=== PATIENT | female | born 1970 | race Caucasian/White ===

== ENCOUNTER 2018-11-13 15:13 | Inpatient (IN) | payer SELFPAY ==
[2018-11-13] MEDS ORDERED: cefTRIAXone 2 GM in Sodium Chloride 0.9% 100 ML IV ONE ×2 (15:35→15:51)
[2018-11-13] MEDS ORDERED: Sodium Chloride 0.9% 1,000 ML IV ONE (15:37)
[2018-11-13] MEDS: Sodium Chloride 0.9% 10 ML Syringe FLUSH PRN ×2 (16:11→17:20)
[2018-11-13] MEDS ORDERED: HYDROmorphone 1 MG/ML Syringe IVPUSH ONE (17:25)
[2018-11-13] MEDS ORDERED: Ondansetron 4 MG/2 ML SDV IVPUSH ONE (17:42)
--- NOTE | 2018-11-13 17:46 | EDM.PDOC ---
ED HPI GENERAL MEDICAL PROBLEM - General Chief Complaint: Genitourinary Problem Stated Complaint: SEVERE KIDNEY INFECTION AND BLADDER INFECTION Time Seen by Provider: 11/13/18 15:26 Source of Information: Reports: Patient, Family History Limitations: Reports: No Limitations - History of Present Illness INITIAL COMMENTS - FREE TEXT/NARRATIVE: The patient presents with a bad kidney infection. The patient says the symptoms started 5 days ago. She had flank pain, nausea, vomiting and dysuria. She was in [place] and she was seen at an ER there. She had a bad kidney infection and she was admitted to the hospital. She was discharged the next day because she had to fly back here. She developed a fever in [place] of 103. She has lower abdominal pain and bilateral flank pain. She has nausea and vomiting. She was called by the hospital and told she may have an E-coli infection. She was not sure if that was in the blood culture. She is not sure if they did a CT. She thinks she had an x-ray. Her thinks it was a CT. I requested old records but they did not sent any. She has a history of diverticulitis. Onset: Gradual Duration: Day(s): (5) Location: Reports: Abdomen, Back Quality: Reports: Sharp Severity: Severe Improves with: Reports: None Worsens with: Reports: None Associated Symptoms: Reports: Fever/Chills, Nausea/Vomiting. Denies: Chest Pain , Cough, Headaches, Shortness of Breath 0 Pain Score (Numeric/FACES): 8 - Related Data Allergies Allergy/AdvReac Type Severity Reaction Status Date / Time Gadolinium-Containing Allergy Rash Verified 11/13/18 15:48 Contrast Medi Home Meds: Home Meds Acetaminophen/oxyCODONE [Percocet 325-7.5 MG] 11/13/18 [History] Promethazine HCl [Promethegan] 11/13/18 [History] Sulfamethoxazole/Trimethoprim [Bactrim Ds Tablet] 11/13/18 [History] amLODIPine Besylate [Amlodipine Besylate] 5 mg 11/13/18 [History] Past Medical History Cardiovascular History: Reports: Hypertension Gastrointestinal History: Reports: Diverticulosis Genitourinary History: Reports: Pyelonephritis, Retention, Urinary, UTI, Recurrent 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, Fibroids, Psychiatric History: Reports: Hallucinations, Panic Attack - Past Surgical History GI Surgical History: Reports: None Female Surgical History: Reports: Hysterectomy Social & Family History - Tobacco Use Smoking Status *Q: Current Some Day Smoker Years of Tobacco use: 20 Packs/Tins Daily: 0.2 - Caffeine Use Caffeine Use: Reports: Soda - Recreational Drug Use Recreational Drug Use: No ED ROS GENERAL - Review of Systems Review Of Systems: See Below Constitutional: Reports: Fever, Chills HEENT: Reports: No Symptoms Respiratory: Reports: No Symptoms Cardiovascular: Reports: No Symptoms Endocrine: Reports: No Symptoms GI/Abdominal: Reports: Abdominal Pain, Nausea, Vomiting : Reports: Flank Pain Musculoskeletal: Reports: No Symptoms Skin: Reports: No Symptoms Neurological: Reports: No Symptoms ED EXAM, GI/ABD - Physical Exam Exam: See Below Exam Limited By: No Limitations General Appearance: Alert, No Apparent Distress Ears: Normal External Exam Nose: Normal Inspection Head: Atraumatic, Normocephalic Neck: Normal Inspection Respiratory/Chest: No Respiratory Distress, Lungs Clear, Normal Breath Sounds Cardiovascular: Regular Rate, Rhythm, No Edema, No Murmur GI/Abdominal Exam: Soft, No Organomegaly, No Mass, Tender (Mild to moderate lower abdominal tenderness) Back Exam: CVA Tenderness (L), CVA Tenderness (R) Course - Vital Signs Last Recorded V/S: Last Vital Signs Temp 99.2 F 11/13/18 15:23 Pulse 123 H 11/13/18 15:23 Resp 20 11/13/18 15:23 BP 211/122 H 11/13/18 15:23 Pulse Ox 96 11/13/18 15:23 - Orders/Labs/Meds Orders: Active Orders 24 hr Category Date Time Status Abdomen Pelvis wo Cont [CT] Stat Exams 11/13/18 17:45 Taken CULTURE BLOOD [BC] Stat Lab 11/13/18 15:59 Received CULTURE BLOOD [BC] Stat Lab 11/13/18 16:03 Received Sodium Chloride 0.9% [Saline Flush] Med 11/13/18 15:35 Active 10 ml FLUSH ASDIRECTED PRN Blood Culture x2 Reflex Set [OM.PC] Stat Oth 11/13/18 15:35 Ordered Saline Lock Insert [OM.PC] Stat Oth 11/13/18 15:35 Ordered Medication Orders Sodium Chloride (Saline Flush) 10 ml FLUSH ASDIRECTED PRN PRN Reason: Keep Vein Open Last Admin: 11/13/18 17:20 Dose: 10 ml Admin: 11/13/18 16:11 Dose: 10 ml Labs: Laboratory Tests 11/13/18 11/13/18 11/13/18 Range/Units 13:35 15:35 15:35 WBC 7.62 (3.98-10.04) K/mm3 RBC 3.69 L (3.98-5.22) M/mm3 Hgb 11.8 (11.2-15.7) gm/L Hct 35.4 (34.1-44.9) % MCV 95.9 H (79.4-94.8) fl MCH 32.0 (25.6-32.2) pg MCHC 33.3 (32.2-35.5) g/dl RDW Std Deviation 47.7 H (36.4-46.3) fL Plt Count 227 (182-369) K/mm3 MPV 9.6 (9.4-12.3) fl Neut % (Auto) 66.0 (34.0-71.1) % Lymph % (Auto) 16.0 L (19.3-51.7) % [place] % (Auto) 17.1 H (4.7-12.5) % Eos % (Auto) 0.3 L (0.7-5.8) Baso % (Auto) 0.3 (0.1-1.2) % Neut # (Auto) 5.04 (1.56-6.13) K/mm3 Lymph # (Auto) 1.22 (1.18-3.74) K/mm3 [place] # (Auto) 1.30 H (0.24-0.36) K/mm3 Eos # (Auto) 0.02 L (0.04-0.36) K/mm3 Baso # (Auto) 0.02 (0.01-0.08) K/mm3 Manual Slide Review Abnormal smear Sodium 136 (136-145) mEq/L Potassium 2.5 L (3.5-5.1) mEq/L Chloride 101 (98-107) mEq/L Carbon Dioxide 23 (21-32) mEq/L Anion Gap 14.5 (5-15) BUN 16 (7-18) mg/dL Creatinine 1.7 H (0.55-1.02) mg/dL Est Cr Clr Drug Dosing TNP Estimated GFR (MDRD) 32 (>60) mL/min BUN/Creatinine Ratio 9.4 L (14-18) Glucose 84 (74-106) mg/dL Lactic Acid (0.4-2.0) mmol/L Calcium 9.2 (8.5-10.1) mg/dL Total Bilirubin 0.5 (0.2-1.0) mg/dL AST 21 (15-37) U/L ALT 41 (14-59) U/L Alkaline Phosphatase 145 H (46-116) U/L Total Protein 7.3 (6.4-8.2) g/dl Albumin 2.9 L (3.4-5.0) g/dl Globulin 4.4 gm/dL Albumin/Globulin Ratio 0.7 L (1-2) Urine Color Light yellow (Yellow) Urine Appearance Clear (Clear) Urine pH 6.5 (5.0-8.0) Ur Specific [place] 1.015 (1.005-1.030) Urine Protein 1+ H (Negative) Urine Glucose (UA) Negative (Negative) Urine Ketones Negative (Negative) Urine Occult Blood 1+ H (Negative) Urine Nitrite Negative (Negative) Urine Bilirubin Negative (Negative) Urine Urobilinogen 0.2 (0.2-1.0) Ur Leukocyte Esterase 1+ H (Negative) Urine RBC 0-5 (0-5) /hpf Urine WBC 0-5 (0-5) /hpf Ur Squamous Epith Cells 0-5 (0-5) /hpf Urine Bacteria Not seen (FEW) /hpf Urine Mucus Not seen (FEW) /hpf 11/13/18 Range/Units 15:59 WBC (3.98-10.04) K/mm3 RBC (3.98-5.22) M/mm3 Hgb (11.2-15.7) gm/L Hct (34.1-44.9) % MCV (79.4-94.8) fl MCH (25.6-32.2) pg MCHC (32.2-35.5) g/dl RDW Std Deviation (36.4-46.3) fL Plt Count (182-369) K/mm3 MPV (9.4-12.3) fl Neut % (Auto) (34.0-71.1) % Lymph % (Auto) (19.3-51.7) % [place] % (Auto) (4.7-12.5) % Eos % (Auto) (0.7-5.8) Baso % (Auto) (0.1-1.2) % Neut # (Auto) (1.56-6.13) K/mm3 Lymph # (Auto) (1.18-3.74) K/mm3 [place] # (Auto) (0.24-0.36) K/mm3 Eos # (Auto) (0.04-0.36) K/mm3 Baso # (Auto) (0.01-0.08) K/mm3 Manual Slide Review Sodium (136-145) mEq/L Potassium (3.5-5.1) mEq/L Chloride (98-107) mEq/L Carbon Dioxide (21-32) mEq/L Anion Gap (5-15) BUN (7-18) mg/dL Creatinine (0.55-1.02) mg/dL Est Cr Clr Drug Dosing Estimated GFR (MDRD) (>60) mL/min BUN/Creatinine Ratio (14-18) Glucose (74-106) mg/dL Lactic Acid 1.0 (0.4-2.0) mmol/L Calcium (8.5-10.1) mg/dL Total Bilirubin (0.2-1.0) mg/dL AST (15-37) U/L ALT (14-59) U/L Alkaline Phosphatase (46-116) U/L Total Protein (6.4-8.2) g/dl Albumin (3.4-5.0) g/dl Globulin gm/dL Albumin/Globulin Ratio (1-2) Urine Color (Yellow) Urine Appearance (Clear) Urine pH (5.0-8.0) Ur Specific [place] (1.005-1.030) Urine Protein (Negative) Urine Glucose (UA) (Negative) Urine Ketones (Negative) Urine Occult Blood (Negative) Urine Nitrite (Negative) Urine Bilirubin (Negative) Urine Urobilinogen (0.2-1.0) Ur Leukocyte Esterase (Negative) Urine RBC (0-5) /hpf Urine WBC (0-5) /hpf Ur Squamous Epith Cells (0-5) /hpf Urine Bacteria (FEW) /hpf Urine Mucus (FEW) /hpf Meds: Medications Generic Name Dose Route Start Last Admin Trade Name Ishmael PRN Reason Stop Dose Admin Sodium Chloride 10 ml 11/13/18 15:35 11/13/18 17:20 Saline Flush FLUSH 10 ml ASDIRECTED PRN Administration Keep Vein Open Discontinued Medications Generic Name Dose Route Start Last Admin Trade Name Ishmael PRN Reason Stop Dose Admin Hydromorphone HCl 1 mg 11/13/18 17:25 11/13/18 17:40 Dilaudid IVPUSH 11/13/18 17:26 1 mg ONETIME ONE Administration Ceftriaxone Sodium 2 gm/ 100 mls @ 200 mls/hr 11/13/18 15:35 11/13/18 16:58 Sodium Chloride IV 11/13/18 16:04 Not Given STAT ONE Sodium Chloride 1,000 mls @ 1,000 mls/hr 11/13/18 15:37 11/13/18 16:08 Normal Saline IV 11/13/18 16:36 1,000 mls/hr ONETIME ONE Administration Ceftriaxone Sodium 2 gm/ 100 mls @ 200 mls/hr 11/13/18 15:51 11/13/18 16:10 Sodium Chloride IV 11/13/18 16:20 200 mls/hr ONETIME ONE Administration Ondansetron HCl 4 mg 11/13/18 17:42 11/13/18 17:47 Zofran IVPUSH 11/13/18 17:43 4 mg ONETIME ONE Administration - Re-Assessments/Exams Free Text/Narrative Re-Assessment/Exam: 11/13/18 17:52 I ordered an IV NS 1L bolus, dilaudid 1mg IV, labs and UA. Her CBC looks good. Her K is low at 2.5. Her creatinine is elevated at 1.7. Her alk phos is elevated at 145. Her UA shows leukocyte esterase. She has more pain so I ordered dilaudid again. She had nausea and vomiting so I ordered zofran. The other hospital did not send any records. I am ordering a CT of her abdomen and pelvis without IV or oral contrast. 11/13/18 19:[address] does show right perinephric stranding which could reflect pyelonephritis or a recently passed stone. She is still not doing well. I do not feel she will do well at home up in [place]. I feel she needs to be admitted. I called Dr Lu and he agreed to the admission. Departure - Departure Time of Disposition: 19:10 Disposition: Admitted As Inpatient 65 Condition: Good Clinical Impression: Pyelonephritis - Discharge Information Referrals: PCP,Not In Area [Primary Care Provider] - Forms: ED Department Discharge - My Orders Last 24 Hours: My Active Orders 11/13/18 15:35 Sodium Chloride 0.9% [Saline Flush] 10 ml FLUSH ASDIRECTED PRN Blood Culture x2 Reflex Set [OM.PC] Stat Saline Lock Insert [OM.PC] Stat 11/13/18 15:59 CULTURE BLOOD [BC] Stat 11/13/18 16:03 CULTURE BLOOD [BC] Stat 11/13/18 17:45 Abdomen Pelvis wo Cont [CT] Stat - Assessment/Plan Last 24 Hours: My Active Orders 11/13/18 15:35 Sodium Chloride 0.9% [Saline Flush] 10 ml FLUSH ASDIRECTED PRN Blood Culture x2 Reflex Set [OM.PC] Stat Saline Lock Insert [OM.PC] Stat 11/13/18 15:59 CULTURE BLOOD [BC] Stat 11/13/18 16:03 CULTURE BLOOD [BC] Stat 11/13/18 17:45 Abdomen Pelvis wo Cont [CT] Stat
[2018-11-13] MEDS ORDERED: Potassium Chloride 10 MEQ in Premix Bag 1 BAG IV SCH (19:30)
[2018-11-13] MEDS ORDERED: Sodium Chloride 0.9% 1,000 ML IV SCH (20:00)
[2018-11-13] MEDS ORDERED: Polyethylene Glycol 3350 Powder 17 GM Packet PO PRN (20:56)
[2018-11-13] MEDS ORDERED: Bisacodyl 5 MG Tab PO PRN (20:56)
--- NOTE | 2018-11-13 21:01 | PCM.HP.2 ---
H&P History of Present Illness - General Date of Service: 11/13/18 Admit Problem/Dx: Admission Diagnosis/Problem Admission Diagnosis/Problem Pyelonephritis - History of Present Illness Initial Comments - Free Text/Narative: 39-year-old female who was discharged yesterday from the hospital in [place] for pyelonephritis presents to the ER with worsening fever, abdominal and right flank pain, nausea, and vomiting. Patient was seen at the emergency room 5 days ago after developing shaking chills and feeling "not all there." Patient was on IV antibiotics and she stated she wanted to go home yesterday although the physician wanted to keep her another day. He did send her home on Bactrim, but she had a phone call today that stated she needs a different antibiotic for Escherichia coli. She does not know the name of the antibiotic. Today in the [place] import she had a temperature of 103.7. She is on amlodipine for her hypertension, but has not been able to keep her medications down. She does have a history of diverticulosis and had a hysterectomy. In the emergency room patient had temperature 99.2 with initial blood pressure of 211/122. This decreased with pain control. CT of the abdomen was performed which showed right perinephric stranding which could reflect pyelonephritis or recently passed stone. Laboratory tests: [place] BC 7.6, hemoglobin of 11.8, platelets 227, sodium 136, potassium 2.5, BUN 16, creatinine 1.7, lactic acid 1.0, alkaline phosphatase 145 , normal AST and ALT, albumin low at 2.9. UA was only significant for 1+ leukocyte Estrace, 1+ occult blood, and 1+ protein. 0-5 RBCs and WBCs. No bacteria seen. 0 Pain Score (Numeric/FACES): 8 - Related Data Allergies/Adverse Reactions: Allergies Allergy/AdvReac Type Severity Reaction Status Date / Time Gadolinium-Containing Allergy Rash Verified 11/13/18 15:48 Contrast Medi Home Medications: Home Meds Promethazine [Phenergan] 12.5 mg PO Q6HR PRN 11/13/18 [History] Sulfamethoxazole/Trimethoprim [Bactrim Ds Tablet] 1 tab PO BID 11/13/18 [History ] amLODIPine Besylate [Amlodipine Besylate] 10 mg PO BEDTIME 11/13/18 [History] oxyCODONE HCl/Acetaminophen [Oxycodon-Acetaminophen 7.5-300] 1 tab PO Q6HR PRN 11/13/18 [History] Past Medical History Cardiovascular History: Reports: Hypertension Gastrointestinal History: Reports: Diverticulosis Genitourinary History: Reports: Pyelonephritis, Retention, Urinary, UTI, Recurrent 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 Exam - Exam Exam: See Below - Vital Signs Vital Signs: Last Vital Signs Temp 99.2 F 11/13/18 15:23 Pulse 123 H 11/13/18 15:23 Resp 20 11/13/18 15:23 BP 211/122 H 11/13/18 15:23 Pulse Ox 96 11/13/18 15:23 - Exam Quality Assessment: No: Supplemental Oxygen General: Alert, Oriented, Other (moderate discomfort) HEENT: Conjunctiva Clear, Hearing Intact, Mucosa Moist & [place] Neck: Supple, Trachea Midline, 2 Lungs: Clear to Auscultation, Normal Respiratory Effort Cardiovascular: Regular Rate, Regular Rhythm GI/Abdominal Exam: Normal Bowel Sounds, Soft, No Organomegaly, No Distention, No Abnormal Bruit, No Mass, Tender (moderate right upper quadrant tenderness with right flank tenderness). No: Guarding, Rigid, Rebound Extremities: Normal Inspection, Normal Range of Motion, Non-Tender, No Pedal Edema, Normal Capillary Refill Skin: Warm, Dry, Intact Neurological: Cranial Nerves Intact Neuro Extensive - Mental Status: Alert, Oriented x3, Normal Mood/Affect, Normal Cognition, Memory Intact Neuro Extensive - Motor, Sensory, Reflexes: CN II-XII Intact Psychiatric: Alert, Normal Affect, Normal Mood - Patient Data Lab Results Last 24 hrs: Laboratory Results - last 24 hr 11/13/18 11/13/18 11/13/18 Range/Units 13:35 15:35 15:35 WBC 7.62 (3.98-10.04) K/mm3 RBC 3.69 L (3.98-5.22) M/mm3 Hgb 11.8 (11.2-15.7) gm/L Hct 35.4 (34.1-44.9) % MCV 95.9 H (79.4-94.8) fl MCH 32.0 (25.6-32.2) pg MCHC 33.3 (32.2-35.5) g/dl RDW Std Deviation 47.7 H (36.4-46.3) fL Plt Count 227 (182-369) K/mm3 MPV 9.6 (9.4-12.3) fl Neut % (Auto) 66.0 (34.0-71.1) % Lymph % (Auto) 16.0 L (19.3-51.7) % [place] % (Auto) 17.1 H (4.7-12.5) % Eos % (Auto) 0.3 L (0.7-5.8) Baso % (Auto) 0.3 (0.1-1.2) % Neut # (Auto) 5.04 (1.56-6.13) K/mm3 Lymph # (Auto) 1.22 (1.18-3.74) K/mm3 [place] # (Auto) 1.30 H (0.24-0.36) K/mm3 Eos # (Auto) 0.02 L (0.04-0.36) K/mm3 Baso # (Auto) 0.02 (0.01-0.08) K/mm3 Manual Slide Review Abnormal smear Sodium 136 (136-145) mEq/L Potassium 2.5 L (3.5-5.1) mEq/L Chloride 101 (98-107) mEq/L Carbon Dioxide 23 (21-32) mEq/L Anion Gap 14.5 (5-15) BUN 16 (7-18) mg/dL Creatinine 1.7 H (0.55-1.02) mg/dL Est Cr Clr Drug Dosing TNP Estimated GFR (MDRD) 32 (>60) mL/min BUN/Creatinine Ratio 9.4 L (14-18) Glucose 84 (74-106) mg/dL Lactic Acid (0.4-2.0) mmol/L Calcium 9.2 (8.5-10.1) mg/dL Total Bilirubin 0.5 (0.2-1.0) mg/dL AST 21 (15-37) U/L ALT 41 (14-59) U/L Alkaline Phosphatase 145 H (46-116) U/L Total Protein 7.3 (6.4-8.2) g/dl Albumin 2.9 L (3.4-5.0) g/dl Globulin 4.4 gm/dL Albumin/Globulin Ratio 0.7 L (1-2) Urine Color Light yellow (Yellow) Urine Appearance Clear (Clear) Urine pH 6.5 (5.0-8.0) Ur Specific [place] 1.015 (1.005-1.030) Urine Protein 1+ H (Negative) Urine Glucose (UA) Negative (Negative) Urine Ketones Negative (Negative) Urine Occult Blood 1+ H (Negative) Urine Nitrite Negative (Negative) Urine Bilirubin Negative (Negative) Urine Urobilinogen 0.2 (0.2-1.0) Ur Leukocyte Esterase 1+ H (Negative) Urine RBC 0-5 (0-5) /hpf Urine WBC 0-5 (0-5) /hpf Ur Squamous Epith Cells 0-5 (0-5) /hpf Urine Bacteria Not seen (FEW) /hpf Urine Mucus Not seen (FEW) /hpf 11/13/18 Range/Units 15:59 WBC (3.98-10.04) K/mm3 RBC (3.98-5.22) M/mm3 Hgb (11.2-15.7) gm/L Hct (34.1-44.9) % MCV (79.4-94.8) fl MCH (25.6-32.2) pg MCHC (32.2-35.5) g/dl RDW Std Deviation (36.4-46.3) fL Plt Count (182-369) K/mm3 MPV (9.4-12.3) fl Neut % (Auto) (34.0-71.1) % Lymph % (Auto) (19.3-51.7) % [place] % (Auto) (4.7-12.5) % Eos % (Auto) (0.7-5.8) Baso % (Auto) (0.1-1.2) % Neut # (Auto) (1.56-6.13) K/mm3 Lymph # (Auto) (1.18-3.74) K/mm3 [place] # (Auto) (0.24-0.36) K/mm3 Eos # (Auto) (0.04-0.36) K/mm3 Baso # (Auto) (0.01-0.08) K/mm3 Manual Slide Review Sodium (136-145) mEq/L Potassium (3.5-5.1) mEq/L Chloride (98-107) mEq/L Carbon Dioxide (21-32) mEq/L Anion Gap (5-15) BUN (7-18) mg/dL Creatinine (0.55-1.02) mg/dL Est Cr Clr Drug Dosing Estimated GFR (MDRD) (>60) mL/min BUN/Creatinine Ratio (14-18) Glucose (74-106) mg/dL Lactic Acid 1.0 (0.4-2.0) mmol/L Calcium (8.5-10.1) mg/dL Total Bilirubin (0.2-1.0) mg/dL AST (15-37) U/L ALT (14-59) U/L Alkaline Phosphatase (46-116) U/L Total Protein (6.4-8.2) g/dl Albumin (3.4-5.0) g/dl Globulin gm/dL Albumin/Globulin Ratio (1-2) Urine Color (Yellow) Urine Appearance (Clear) Urine pH (5.0-8.0) Ur Specific [place] (1.005-1.030) Urine Protein (Negative) Urine Glucose (UA) (Negative) Urine Ketones (Negative) Urine Occult Blood (Negative) Urine Nitrite (Negative) Urine Bilirubin (Negative) Urine Urobilinogen (0.2-1.0) Ur Leukocyte Esterase (Negative) Urine RBC (0-5) /hpf Urine WBC (0-5) /hpf Ur Squamous Epith Cells (0-5) /hpf Urine Bacteria (FEW) /hpf Urine Mucus (FEW) /hpf Result Diagrams: 11/13/18 15:35 11/13/18 15:35 Problem List Initiated/Reviewed/Updated: Yes Orders Last 24hrs: Active Orders 24 hr Category Date Time Status Admission Status [Patient Status] [ADT] Routine ADT 11/13/18 20:35 Active Oxygen Therapy [RC] PRN Care 11/13/18 20:57 Ordered Up ad Julienne [RC] ASDIRECTED Care 11/13/18 20:56 Ordered VTE/DVT Education [RC] PER UNIT ROUTINE Care 11/13/18 20:57 Ordered Vital Signs [RC] Q4H Care 11/13/18 20:57 Ordered Regular Diet [DIET] Diet 11/13/18 Dinner Ordered Abdomen Pelvis wo Cont [CT] Stat Exams 11/13/18 17:45 Taken C-REACTIVE PROTEIN [CHEM] AM Lab 11/14/18 05:11 Ordered C-REACTIVE PROTEIN [CHEM] AM Lab 11/15/18 05:11 Ordered C-REACTIVE PROTEIN [CHEM] AM Lab 11/16/18 05:11 Ordered C-REACTIVE PROTEIN [CHEM] AM Lab 11/17/18 05:11 Ordered C-REACTIVE PROTEIN [CHEM] AM Lab 11/18/18 05:11 Ordered CBC WITH AUTO DIFF [HEME] AM Lab 11/14/18 05:11 Ordered CBC WITH AUTO DIFF [HEME] AM Lab 11/15/18 05:11 Ordered CBC WITH AUTO DIFF [HEME] AM Lab 11/16/18 05:11 Ordered CBC WITH AUTO DIFF [HEME] AM Lab 11/17/18 05:11 Ordered CBC WITH AUTO DIFF [HEME] AM Lab 11/18/18 05:11 Ordered COMPREHENSIVE METABOLIC PN,CMP [CHEM] AM Lab 11/14/18 05:11 Ordered COMPREHENSIVE METABOLIC PN,CMP [CHEM] AM Lab 11/15/18 05:11 Ordered COMPREHENSIVE METABOLIC PN,CMP [CHEM] AM Lab 11/16/18 05:11 Ordered COMPREHENSIVE METABOLIC PN,CMP [CHEM] AM Lab 11/17/18 05:11 Ordered COMPREHENSIVE METABOLIC PN,CMP [CHEM] AM Lab 11/18/18 05:11 Ordered CULTURE BLOOD [BC] Stat Lab 11/13/18 15:59 Received CULTURE BLOOD [BC] Stat Lab 11/13/18 16:03 Received MAGNESIUM [CHEM] AM Lab 11/14/18 05:11 Ordered MAGNESIUM [CHEM] AM Lab 11/15/18 05:11 Ordered MAGNESIUM [CHEM] AM Lab 11/16/18 05:11 Ordered MAGNESIUM [CHEM] AM Lab 11/17/18 05:11 Ordered MAGNESIUM [CHEM] AM Lab 11/18/18 05:11 Ordered Acetaminophen [Tylenol] Med 11/13/18 20:56 Ordered 650 mg PO Q4H PRN Bisacodyl [Dulcolax] Med 11/13/18 20:56 Ordered 5 mg PO DAILY PRN Enoxaparin [Lovenox] Med 11/14/18 09:00 Ordered 40 mg SUBCUT DAILY HYDROmorphone [Dilaudid] Med 11/13/18 20:56 Ordered 0.5 mg IVPUSH Q2H PRN Meropenem [Merrem] Med 11/13/18 21:00 Ordered 1 gm IVPUSH Q8H Ondansetron [Zofran] Med 11/13/18 20:56 Ordered 4 mg IV Q4H PRN Polyethylene Glycol 3350 [MiraLAX] Med 11/13/18 20:56 Ordered 17 gm PO DAILY PRN Potassium Chloride [KCl 10 MEQ in Water 100 ML] 10 meq Med 11/13/18 19:30 Active Premix Bag 1 bag IV ASDIRECTED Sodium Chloride 0.9% [Normal Saline] 1,000 ml Med 11/13/18 20:00 Active IV ASDIRECTED Sodium Chloride 0.9% [Saline Flush] Med 11/13/18 15:35 Active 10 ml FLUSH ASDIRECTED PRN amLODIPine [Norvasc] Med 11/13/18 21:00 Unverified DOSE UNIT RTE FREQ oxyCODONE Med 11/13/18 20:56 Ordered 5 mg PO Q4H PRN Blood Culture x2 Reflex Set [OM.PC] Stat Oth 11/13/18 15:35 Ordered Saline Lock Insert [OM.PC] Stat Oth 11/13/18 15:35 Ordered Resuscitation Status Routine Resus Stat 11/13/18 20:56 Ordered Medication Orders Potassium Chloride 10 meq/ (Premix) 100 mls @ 100 mls/hr IV ASDIRECTED [facility] Last Admin: 11/13/18 19:52 Dose: 100 mls/hr Sodium Chloride (Normal Saline) 1,000 mls @ 50 mls/hr IV ASDIRECTED ELISEO Last Admin: 11/13/18 19:52 Dose: 50 mls/hr Sodium Chloride (Saline Flush) 10 ml FLUSH ASDIRECTED PRN PRN Reason: Keep Vein Open Last Admin: 11/13/18 17:20 Dose: 10 ml Admin: 11/13/18 16:11 Dose: 10 ml Assessment/Plan Comment:: Assessment * 47-year-old female recently admitted for pyelonephritis with recurrence. Escherichia coli on culture from previous hospitalization per patient not sensitive to Bactrim. * Acute kidney injury * Hypokalemia * Hypertension Plan * Admit to MedSurg on telemetry * Meropenem 1 g every 8 hours * replenish potassium and recheck * IV rehydration * Pain control with oxycodone and Dilaudid, Zofran for nausea * Restart amlodipine for hypertension. * CBC, CMP, C-reactive protein, and magnesium daily * CODE STATUS: Full code * VTE prophylaxis with Lovenox - Mortality Measure Prognosis:: Good
[2018-11-13] MEDS ORDERED: amLODIPine 10 MG Tab PO STA (21:45)
[2018-11-13] MEDS ORDERED: Meropenem 1 GM SDV IVPUSH SCH (22:00)
[2018-11-13] MEDS: Lactated Ringers 1,000 ML IV SCH (22:19)
[2018-11-13] MEDS: Potassium Chloride 10 MEQ in Premix Bag 1 BAG IV SCH ×2 (22:22→23:10)
[2018-11-13] MEDS: Ondansetron 4 MG/2 ML SDV IV PRN (22:22)
[2018-11-13] MEDS: Meropenem 1 GM in Sodium Chloride 0.9% 100 ML IV SCH (23:06)
[2018-11-14] MEDS: Potassium Chloride 10 MEQ in Premix Bag 1 BAG IV SCH ×6 (00:27→14:35)
[2018-11-14] MEDS: HYDROmorphone 0.5 MG/0.5 ML Syringe IVPUSH PRN ×4 (00:33→16:23)
[2018-11-14] MEDS: Acetaminophen 325 MG Tab PO PRN ×2 (04:26→14:39)
[2018-11-14] MEDS: Lactated Ringers 1,000 ML IV SCH (06:40)
[2018-11-14] MEDS: Meropenem 1 GM in Sodium Chloride 0.9% 100 ML IV SCH (08:07)
[2018-11-14] MEDS ORDERED: Magnesium Sulfate/Water 4 GM in Premix Bag 1 BAG IV ONE (08:14)
[2018-11-14] MEDS: Meropenem Premix 500 MG in Premix Bag 1 BAG IV SCH ×3 (08:15→23:50)
[2018-11-14] MEDS: Enoxaparin 40 MG/0.4 ML Syringe SUBCUT SCH (08:15)
[2018-11-14] MEDS: Ondansetron 4 MG/2 ML SDV IV PRN (08:45)
[2018-11-14] MEDS: oxyCODONE 5 MG Tab PO PRN ×2 (12:22→20:29)
--- NOTE | 2018-11-14 14:03 | PCM.PN ---
- General Info Date of Service: 11/14/18 Admission Dx/Problem (Free Text): Admission Diagnosis/Problem Admission Diagnosis/Problem Pyelonephritis Functional Status: Denies: Pain Controlled - Review of Systems General: Reports: Fever, Chills HEENT: Reports: No Symptoms Pulmonary: Reports: No Symptoms Cardiovascular: Reports: No Symptoms Gastrointestinal: Reports: Abdominal Pain Genitourinary: Denies: Dysuria, Frequency - Patient Data Vitals - Most Recent: Last Vital Signs Temp 98.2 F 11/14/18 08:25 Pulse 87 11/14/18 08:25 Resp 20 11/14/18 08:25 BP 136/85 11/14/18 08:25 Pulse Ox 94 L 11/14/18 08:25 Weight - Most Recent: 172 lb 3.2 oz I&O - Last 24 Hours: Intake & Output 11/13/18 11/14/18 11/14/18 22:59 06:59 14:59 Intake Total 2236 Output Total 1150 Balance 1086 Lab Results Last 24 Hours: Laboratory Results - last 24 hr 11/13/18 11/13/18 11/13/18 Range/Units 13:35 15:35 15:35 WBC 7.62 (3.98-10.04) K/mm3 RBC 3.69 L (3.98-5.22) M/mm3 Hgb 11.8 (11.2-15.7) gm/L Hct 35.4 (34.1-44.9) % MCV 95.9 H (79.4-94.8) fl MCH 32.0 (25.6-32.2) pg MCHC 33.3 (32.2-35.5) g/dl RDW Std Deviation 47.7 H (36.4-46.3) fL Plt Count 227 (182-369) K/mm3 MPV 9.6 (9.4-12.3) fl Neut % (Auto) 66.0 (34.0-71.1) % Lymph % (Auto) 16.0 L (19.3-51.7) % [place] % (Auto) 17.1 H (4.7-12.5) % Eos % (Auto) 0.3 L (0.7-5.8) Baso % (Auto) 0.3 (0.1-1.2) % Neut # (Auto) 5.04 (1.56-6.13) K/mm3 Lymph # (Auto) 1.22 (1.18-3.74) K/mm3 [place] # (Auto) 1.30 H (0.24-0.36) K/mm3 Eos # (Auto) 0.02 L (0.04-0.36) K/mm3 Baso # (Auto) 0.02 (0.01-0.08) K/mm3 Manual Slide Review Abnormal smear Sodium 136 (136-145) mEq/L Potassium 2.5 L (3.5-5.1) mEq/L Chloride 101 (98-107) mEq/L Carbon Dioxide 23 (21-32) mEq/L Anion Gap 14.5 (5-15) BUN 16 (7-18) mg/dL Creatinine 1.7 H (0.55-1.02) mg/dL Est Cr Clr Drug Dosing TNP Estimated GFR (MDRD) 32 (>60) mL/min BUN/Creatinine Ratio 9.4 L (14-18) Glucose 84 (74-106) mg/dL Lactic Acid (0.4-2.0) mmol/L Calcium 9.2 (8.5-10.1) mg/dL Magnesium (1.8-2.4) mg/dl Total Bilirubin 0.5 (0.2-1.0) mg/dL AST 21 (15-37) U/L ALT 41 (14-59) U/L Alkaline Phosphatase 145 H (46-116) U/L C-Reactive Protein (<1.0) mg/dL Total Protein 7.3 (6.4-8.2) g/dl Albumin 2.9 L (3.4-5.0) g/dl Globulin 4.4 gm/dL Albumin/Globulin Ratio 0.7 L (1-2) Urine Color Light yellow (Yellow) Urine Appearance Clear (Clear) Urine pH 6.5 (5.0-8.0) Ur Specific [place] 1.015 (1.005-1.030) Urine Protein 1+ H (Negative) Urine Glucose (UA) Negative (Negative) Urine Ketones Negative (Negative) Urine Occult Blood 1+ H (Negative) Urine Nitrite Negative (Negative) Urine Bilirubin Negative (Negative) Urine Urobilinogen 0.2 (0.2-1.0) Ur Leukocyte Esterase 1+ H (Negative) Urine RBC 0-5 (0-5) /hpf Urine WBC 0-5 (0-5) /hpf Ur Squamous Epith Cells 0-5 (0-5) /hpf Urine Bacteria Not seen (FEW) /hpf Urine Mucus Not seen (FEW) /hpf 11/13/18 11/14/18 11/14/18 Range/Units 15:59 04:50 04:52 WBC 7.67 (3.98-10.04) K/mm3 RBC 3.14 L (3.98-5.22) M/mm3 Hgb 10.0 L D (11.2-15.7) gm/L Hct 30.5 L (34.1-44.9) % MCV 97.1 H (79.4-94.8) fl MCH 31.8 (25.6-32.2) pg MCHC 32.8 (32.2-35.5) g/dl RDW Std Deviation 48.4 H (36.4-46.3) fL Plt Count 218 (182-369) K/mm3 MPV 10.5 (9.4-12.3) fl Neut % (Auto) 61.5 (34.0-71.1) % Lymph % (Auto) 16.3 L (19.3-51.7) % [place] % (Auto) 20.5 H (4.7-12.5) % Eos % (Auto) 1.0 (0.7-5.8) Baso % (Auto) 0.4 (0.1-1.2) % Neut # (Auto) 4.72 (1.56-6.13) K/mm3 Lymph # (Auto) 1.25 (1.18-3.74) K/mm3 [place] # (Auto) 1.57 H (0.24-0.36) K/mm3 Eos # (Auto) 0.08 (0.04-0.36) K/mm3 Baso # (Auto) 0.03 (0.01-0.08) K/mm3 Manual Slide Review Abnormal smear Sodium 136 (136-145) mEq/L Potassium 3.1 L (3.5-5.1) mEq/L Chloride 102 (98-107) mEq/L Carbon Dioxide 21 (21-32) mEq/L Anion Gap 16.1 H (5-15) BUN 14 (7-18) mg/dL Creatinine 1.5 H (0.55-1.02) mg/dL Est Cr Clr Drug Dosing 42.94 Estimated GFR (MDRD) 37 (>60) mL/min BUN/Creatinine Ratio 9.3 L (14-18) Glucose 107 H (74-106) mg/dL Lactic Acid 1.0 (0.4-2.0) mmol/L Calcium 8.0 L (8.5-10.1) mg/dL Magnesium 1.6 L (1.8-2.4) mg/dl Total Bilirubin 0.4 (0.2-1.0) mg/dL AST 23 (15-37) U/L ALT 30 (14-59) U/L Alkaline Phosphatase 118 H (46-116) U/L C-Reactive Protein 20.9 H* (<1.0) mg/dL Total Protein 5.9 L (6.4-8.2) g/dl Albumin 2.1 L (3.4-5.0) g/dl Globulin 3.8 gm/dL Albumin/Globulin Ratio 0.6 L (1-2) Urine Color (Yellow) Urine Appearance (Clear) Urine pH (5.0-8.0) Ur Specific [place] (1.005-1.030) Urine Protein (Negative) Urine Glucose (UA) (Negative) Urine Ketones (Negative) Urine Occult Blood (Negative) Urine Nitrite (Negative) Urine Bilirubin (Negative) Urine Urobilinogen (0.2-1.0) Ur Leukocyte Esterase (Negative) Urine RBC (0-5) /hpf Urine WBC (0-5) /hpf Ur Squamous Epith Cells (0-5) /hpf Urine Bacteria (FEW) /hpf Urine Mucus (FEW) /hpf Med Orders - Current: Current Medications Acetaminophen (Tylenol) 650 mg PO Q4H PRN PRN Reason: Pain (Mild 1-3)/fever Last Admin: 11/14/18 04:26 Dose: 650 mg Amlodipine Besylate (Norvasc) 10 mg PO BEDTIME [facility] Bisacodyl (Dulcolax) 5 mg PO DAILY PRN PRN Reason: Constipation Last Admin: 11/14/18 12:22 Dose: 5 mg Enoxaparin Sodium (Lovenox) 40 mg SUBCUT DAILY ELISEO Last Admin: 11/14/18 08:15 Dose: 40 mg Hydromorphone HCl (Dilaudid) 0.5 mg IVPUSH Q2H PRN PRN Reason: Pain (severe 7-10) Last Admin: 11/14/18 10:06 Dose: 0.5 mg Lactated Ringer's (Ringers, Lactated) 1,000 mls @ 125 mls/hr IV ASDIRECTED ELISEO Last Admin: 11/14/18 06:40 Dose: 125 mls/hr Meropenem/Sodium Chloride 500 (mg/ Premix) 50 mls @ 100 mls/hr IV Q8H ELISEO Last Admin: 11/14/18 08:15 Dose: 100 mls/hr Ondansetron HCl (Zofran) 4 mg IV Q4H PRN PRN Reason: Nausea/Vomiting Last Admin: 11/14/18 08:45 Dose: 4 mg Oxycodone HCl (Oxycodone) 5 mg PO Q4H PRN PRN Reason: Pain (moderate 4-6) Last Admin: 11/14/18 12:22 Dose: 5 mg Polyethylene Glycol (Miralax) 17 gm PO DAILY PRN PRN Reason: Constipation Sodium Chloride (Saline Flush) 10 ml FLUSH ASDIRECTED PRN PRN Reason: Keep Vein Open Last Admin: 11/13/18 17:20 Dose: 10 ml Discontinued Medications Amlodipine Besylate (Norvasc) 10 mg PO NOW STA Stop: 11/13/18 21:46 Last Admin: 11/13/18 22:24 Dose: 10 mg Hydromorphone HCl (Dilaudid) 1 mg IVPUSH ONETIME ONE Stop: 11/13/18 17:26 Last Admin: 11/13/18 17:40 Dose: 1 mg Ceftriaxone Sodium 2 gm/ (Sodium Chloride) 100 mls @ 200 mls/hr IV STAT ONE Stop: 11/13/18 16:04 Last Admin: 11/13/18 16:58 Dose: Not Given Sodium Chloride (Normal Saline) 1,000 mls @ 1,000 mls/hr IV ONETIME ONE Stop: 11/13/18 16:36 Last Admin: 11/13/18 16:08 Dose: 1,000 mls/hr Ceftriaxone Sodium 2 gm/ (Sodium Chloride) 100 mls @ 200 mls/hr IV ONETIME ONE Stop: 11/13/18 16:20 Last Admin: 11/13/18 16:10 Dose: 200 mls/hr Potassium Chloride 10 meq/ (Premix) 100 mls @ 100 mls/hr IV ASDIRECTED [facility] Last Admin: 11/13/18 19:52 Dose: 100 mls/hr Sodium Chloride (Normal Saline) 1,000 mls @ 50 mls/hr IV ASDIRECTED [facility] Last Admin: 11/13/18 19:52 Dose: 50 mls/hr Potassium Chloride 10 meq/ (Premix) 100 mls @ 100 mls/hr IV Q1H [facility] Stop: 11/14/18 01:44 Last Admin: 11/14/18 01:40 Dose: 100 mls/hr Meropenem 1 gm/ Sodium (Chloride) 100 mls @ 200 mls/hr IV Q8H [facility] Last Admin: 11/14/18 08:07 Dose: Not Given Potassium Chloride 10 meq/ (Premix) 100 mls @ 100 mls/hr IV Q1H [facility] Stop: 11/14/18 12:14 Last Admin: 11/14/18 12:22 Dose: 100 mls/hr Magnesium Sulfate 4 gm/ Premix 50 mls @ 12.5 mls/hr IV ONETIME ONE Stop: 11/14/18 12:13 Last Admin: 11/14/18 08:51 Dose: 12.5 mls/hr Ondansetron HCl (Zofran) 4 mg IVPUSH ONETIME ONE Stop: 11/13/18 17:43 Last Admin: 11/13/18 17:47 Dose: 4 mg - Exam Quality Assessment: No: Supplemental Oxygen HEENT: Pupils Equal, Mucous Membr. Moist/[place] Neck: Supple Lungs: Clear to Auscultation, Normal Respiratory Effort Cardiovascular: Regular Rate, Regular Rhythm GI/Abdominal Exam: Normal Bowel Sounds, Soft, Tender (mild right upper quadrant tenderness without rebound or guarding.) Back Exam: CVA Tenderness (R) Skin: Warm, Dry, Intact Neurological: No New Focal Deficit Psy/Mental Status: Alert, Normal Affect, Normal Mood - Problem List Review Problem List Initiated/Reviewed/Updated: Yes - My Orders Last 24 Hours: My Active Orders 11/13/18 20:56 Up ad Julienne [RC] BID Acetaminophen [Tylenol] 650 mg PO Q4H PRN Bisacodyl [Dulcolax] 5 mg PO DAILY PRN HYDROmorphone [Dilaudid] 0.5 mg IVPUSH Q2H PRN Ondansetron [Zofran] 4 mg IV Q4H PRN Polyethylene Glycol 3350 [MiraLAX] 17 gm PO DAILY PRN oxyCODONE 5 mg PO Q4H PRN Resuscitation Status Routine 11/13/18 20:57 Oxygen Therapy [RC] PRN VTE/DVT Education [RC] DAILY 11/13/18 21:45 Lactated Ringers [Ringers, Lactated] 1,000 ml IV ASDIRECTED 11/13/18 Dinner Regular Diet [DIET] 11/14/18 08:00 Meropenem Premix [Meropenem] 500 mg Premix Bag 1 bag IV Q8H 11/14/18 09:00 Enoxaparin [Lovenox] 40 mg SUBCUT DAILY 11/14/18 21:00 amLODIPine [Norvasc] 10 mg PO BEDTIME 11/15/18 05:11 C-REACTIVE PROTEIN [CHEM] AM CBC WITH AUTO DIFF [HEME] AM COMPREHENSIVE METABOLIC PN,CMP [CHEM] AM MAGNESIUM [CHEM] AM 11/16/18 05:11 C-REACTIVE PROTEIN [CHEM] AM CBC WITH AUTO DIFF [HEME] AM COMPREHENSIVE METABOLIC PN,CMP [CHEM] AM MAGNESIUM [CHEM] AM 11/17/18 05:11 C-REACTIVE PROTEIN [CHEM] AM CBC WITH AUTO DIFF [HEME] AM COMPREHENSIVE METABOLIC PN,CMP [CHEM] AM MAGNESIUM [CHEM] AM 11/18/18 05:11 C-REACTIVE PROTEIN [CHEM] AM CBC WITH AUTO DIFF [HEME] AM COMPREHENSIVE METABOLIC PN,CMP [CHEM] AM MAGNESIUM [CHEM] AM - Plan Plan:: Assessment * 47-year-old female recently admitted for pyelonephritis with recurrence. Escherichia coli on culture from previous hospitalization per patient not sensitive to Bactrim. * Acute kidney injury * Hypokalemia * Hypertension Plan * Admit to [facility] on telemetry * Meropenem 1 g every 8 hours * replenish potassium and recheck * IV rehydration * Pain control with oxycodone and Dilaudid, Zofran for nausea * Restart amlodipine for hypertension. * request records from [facility]. * Patient called her pharmacy and Cefdinir was called in by the hospital. * CBC, CMP, C-reactive protein, and magnesium daily * CODE STATUS: Full code * VTE prophylaxis with Lovenox
--- NOTE | 2018-11-14 14:32 | PCM.SN ---
- Free Text/Narrative Note: Old records from her hospitalist in [place], [facility], were obtained and reviewed. CT scan of the abdomen and pelvis without contrast showed perinephric stranding around the right kidney with minimal right-sided hydronephrosis. No definite urolithiasis. Left nephrolithiasis with a 1 mm calculus lower pole left kidney without hydronephrosis. Urine culture did grow out Escherichia coli and blood cultures, 2 out of 2, also grew out Escherichia coli. Organism was sensitive to ceftriaxone, cefazolin, cefepime, levofloxacin, meropenem, ceftaz edema, and Zosyn. They were resistant to Bactrim, ampicillin, and Unasyn. Patient continue on meropenem until current blood cultures return. Patient continues to have fever and chills.
[2018-11-14] MEDS: amLODIPine 10 MG Tab PO SCH (20:29)
[2018-11-15] MEDS: Acetaminophen 325 MG Tab PO PRN ×3 (00:01→23:23)
[2018-11-15] MEDS: oxyCODONE 5 MG Tab PO PRN ×4 (00:42→23:22)
[2018-11-15] MEDS: Ondansetron 4 MG/2 ML SDV IV PRN ×3 (08:34→21:10)
[2018-11-15] MEDS: Enoxaparin 40 MG/0.4 ML Syringe SUBCUT SCH (08:34)
[2018-11-15] MEDS: Meropenem Premix 500 MG in Premix Bag 1 BAG IV SCH (08:35)
[2018-11-15] MEDS ORDERED: Bisacodyl 10 MG Supp RECTAL ONE (10:42)
[2018-11-15] MEDS ORDERED: Magnesium Hydroxide 400 MG/5 ML Susp 30 ML Cup PO ONE (12:35)
[2018-11-15] MEDS: cefTRIAXone 2 GM in Sodium Chloride 0.9% 100 ML IV SCH (15:27)
--- NOTE | 2018-11-15 17:49 | PCM.PN ---
- General Info Date of Service: 11/15/18 Admission Dx/Problem (Free Text): Admission Diagnosis/Problem Admission Diagnosis/Problem Pyelonephritis Subjective Update: Patient been afebrile for 24 hours. She continues to feel chilled and has a poor appetite. Functional Status: Reports: Pain Controlled - Review of Systems General: Reports: No Symptoms HEENT: Reports: No Symptoms Pulmonary: Reports: No Symptoms Cardiovascular: Reports: No Symptoms Gastrointestinal: Reports: No Symptoms - Patient Data Vitals - Most Recent: Last Vital Signs Temp 97.9 F 11/15/18 15:26 Pulse 83 11/15/18 15:26 Resp 16 11/15/18 15:26 BP 132/82 11/15/18 15:26 Pulse Ox 93 L 11/15/18 15:26 Weight - Most Recent: 173 lb 14.4 oz I&O - Last 24 Hours: Intake & Output 11/15/18 11/15/18 11/15/18 06:59 14:59 22:59 Intake Total 3603 918 4751 Output Total 1300 1400 Balance -250 240 -50 Lab Results Last 24 Hours: Laboratory Results - last 24 hr 11/15/18 11/15/18 Range/Units 04:25 04:25 WBC 10.18 H (3.98-10.04) K/mm3 RBC 2.89 L (3.98-5.22) M/mm3 Hgb 9.2 L (11.2-15.7) gm/L Hct 28.4 L (34.1-44.9) % MCV 98.3 H (79.4-94.8) fl MCH 31.8 (25.6-32.2) pg MCHC 32.4 (32.2-35.5) g/dl RDW Std Deviation 50.3 H (36.4-46.3) fL Plt Count 257 (182-369) K/mm3 MPV 10.0 (9.4-12.3) fl Neut % (Auto) 61.6 (34.0-71.1) % Lymph % (Auto) 20.4 (19.3-51.7) % [place] % (Auto) 15.4 H (4.7-12.5) % Eos % (Auto) 1.1 (0.7-5.8) Baso % (Auto) 0.8 (0.1-1.2) % Neut # (Auto) 6.27 H (1.56-6.13) K/mm3 Lymph # (Auto) 2.08 (1.18-3.74) K/mm3 [place] # (Auto) 1.57 H (0.24-0.36) K/mm3 Eos # (Auto) 0.11 (0.04-0.36) K/mm3 Baso # (Auto) 0.08 (0.01-0.08) K/mm3 Manual Slide Review Abnormal smear Sodium 139 (136-145) mEq/L Potassium 3.4 L (3.5-5.1) mEq/L Chloride 104 (98-107) mEq/L Carbon Dioxide 26 (21-32) mEq/L Anion Gap 12.4 (5-15) BUN 11 (7-18) mg/dL Creatinine 1.3 H (0.55-1.02) mg/dL Est Cr Clr Drug Dosing 49.54 mL/min Estimated GFR (MDRD) 44 (>60) mL/min BUN/Creatinine Ratio 8.5 L (14-18) Glucose 102 (74-106) mg/dL Calcium 8.4 L (8.5-10.1) mg/dL Magnesium 2.0 (1.8-2.4) mg/dl Total Bilirubin 0.3 (0.2-1.0) mg/dL AST 25 (15-37) U/L ALT 30 (14-59) U/L Alkaline Phosphatase 100 (46-116) U/L C-Reactive Protein 17.9 H* (<1.0) mg/dL Total Protein 5.7 L (6.4-8.2) g/dl Albumin 2.0 L (3.4-5.0) g/dl Globulin 3.7 gm/dL Albumin/Globulin Ratio 0.5 L (1-2) [place] Results Last 24 Hours: Microbiology 11/13/18 15:59 Aerobic Blood Culture - Preliminary Blood - Venous NO GROWTH AFTER 2 DAYS Anaerobic Blood Culture - Preliminary NO GROWTH AFTER 2 DAYS 11/13/18 16:03 Aerobic Blood Culture - Preliminary Blood - Venous - Lab Draw NO GROWTH AFTER 2 DAYS Anaerobic Blood Culture - Preliminary NO GROWTH AFTER 2 DAYS Med Orders - Current: Current Medications Acetaminophen (Tylenol) 650 mg PO Q4H PRN PRN Reason: Pain (Mild 1-3)/fever Last Admin: 11/15/18 10:59 Dose: 650 mg Amlodipine Besylate (Norvasc) 10 mg PO BEDTIME [facility] Last Admin: 11/14/18 20:29 Dose: 10 mg Bisacodyl (Dulcolax) 5 mg PO DAILY PRN PRN Reason: Constipation Last Admin: 11/14/18 12:22 Dose: 5 mg Enoxaparin Sodium (Lovenox) 40 mg SUBCUT DAILY [facility] Last Admin: 11/15/18 08:34 Dose: 40 mg Hydromorphone HCl (Dilaudid) 0.5 mg IVPUSH Q2H PRN PRN Reason: Pain (severe 7-10) Last Admin: 11/14/18 16:23 Dose: 0.5 mg Ceftriaxone Sodium 2 gm/ (Sodium Chloride) 100 mls @ 200 mls/hr IV Q24H ELISEO Last Admin: 11/15/18 15:27 Dose: 200 mls/hr Ondansetron HCl (Zofran) 4 mg IV Q4H PRN PRN Reason: Nausea/Vomiting Last Admin: 11/15/18 12:32 Dose: 4 mg Oxycodone HCl (Oxycodone) 5 mg PO Q4H PRN PRN Reason: Pain (moderate 4-6) Last Admin: 11/15/18 17:28 Dose: 5 mg Polyethylene Glycol (Miralax) 17 gm PO DAILY PRN PRN Reason: Constipation Last Admin: 11/14/18 20:30 Dose: 17 gm Sodium Chloride (Saline Flush) 10 ml FLUSH ASDIRECTED PRN PRN Reason: Keep Vein Open Last Admin: 11/13/18 17:20 Dose: 10 ml Discontinued Medications Amlodipine Besylate (Norvasc) 10 mg PO NOW STA Stop: 11/13/18 21:46 Last Admin: 11/13/18 22:24 Dose: 10 mg Bisacodyl (Dulcolax) 10 mg RECTAL ONETIME ONE Stop: 11/15/18 10:43 Last Admin: 11/15/18 10:52 Dose: 10 mg Hydromorphone HCl (Dilaudid) 1 mg IVPUSH ONETIME ONE Stop: 11/13/18 17:26 Last Admin: 11/13/18 17:40 Dose: 1 mg Ceftriaxone Sodium 2 gm/ (Sodium Chloride) 100 mls @ 200 mls/hr IV STAT ONE Stop: 11/13/18 16:04 Last Admin: 11/13/18 16:58 Dose: Not Given Sodium Chloride (Normal Saline) 1,000 mls @ 1,000 mls/hr IV ONETIME ONE Stop: 11/13/18 16:36 Last Admin: 11/13/18 16:08 Dose: 1,000 mls/hr Ceftriaxone Sodium 2 gm/ (Sodium Chloride) 100 mls @ 200 mls/hr IV ONETIME ONE Stop: 11/13/18 16:20 Last Admin: 11/13/18 16:10 Dose: 200 mls/hr Potassium Chloride 10 meq/ (Premix) 100 mls @ 100 mls/hr IV ASDIRECTED [facility] Last Admin: 11/13/18 19:52 Dose: 100 mls/hr Sodium Chloride (Normal Saline) 1,000 mls @ 50 mls/hr IV ASDIRECTED [facility] Last Admin: 11/13/18 19:52 Dose: 50 mls/hr Lactated Ringer's (Ringers, Lactated) 1,000 mls @ 125 mls/hr IV ASDIRECTED [facility] Last Admin: 11/14/18 06:40 Dose: 125 mls/hr Potassium Chloride 10 meq/ (Premix) 100 mls @ 100 mls/hr IV Q1H [facility] Stop: 11/14/18 01:44 Last Admin: 11/14/18 01:40 Dose: 100 mls/hr Meropenem 1 gm/ Sodium (Chloride) 100 mls @ 200 mls/hr IV Q8H [facility] Last Admin: 11/14/18 08:07 Dose: Not Given Meropenem/Sodium Chloride 500 (mg/ Premix) 50 mls @ 100 mls/hr IV Q8H [facility] Last Admin: 11/15/18 08:35 Dose: 100 mls/hr Potassium Chloride 10 meq/ (Premix) 100 mls @ 100 mls/hr IV Q1H [facility] Stop: 11/14/18 12:14 Last Admin: 11/14/18 14:35 Dose: 100 mls/hr Magnesium Sulfate 4 gm/ Premix 50 mls @ 12.5 mls/hr IV ONETIME ONE Stop: 11/14/18 12:13 Last Admin: 11/14/18 08:51 Dose: 12.5 mls/hr Magnesium Hydroxide (Milk Of Magnesia) 30 ml PO ONETIME ONE Stop: 11/15/18 12:36 Last Admin: 11/15/18 12:54 Dose: 30 ml Ondansetron HCl (Zofran) 4 mg IVPUSH ONETIME ONE Stop: 11/13/18 17:43 Last Admin: 11/13/18 17:47 Dose: 4 mg - Exam Quality Assessment: No: Supplemental Oxygen General: Alert, Oriented HEENT: Pupils Equal, Mucous Membr. Moist/[place] Neck: Supple Lungs: Clear to Auscultation, Normal Respiratory Effort Cardiovascular: Regular Rate, Regular Rhythm GI/Abdominal Exam: Normal Bowel Sounds, Soft, Non-Tender, No Organomegaly, No Distention Extremities: Normal Inspection, Normal Range of Motion, Non-Tender, No Pedal Edema - Problem List Review Problem List Initiated/Reviewed/Updated: Yes - My Orders Last 24 Hours: My Active Orders 11/14/18 21:00 amLODIPine [Norvasc] 10 mg PO BEDTIME 11/15/18 16:00 cefTRIAXone [Rocephin] 2 gm Sodium Chloride 0.9% [Normal Saline] 100 ml IV Q24H 11/16/18 05:11 C-REACTIVE PROTEIN [CHEM] AM CBC WITH AUTO DIFF [HEME] AM COMPREHENSIVE METABOLIC PN,CMP [CHEM] AM MAGNESIUM [CHEM] AM 11/17/18 05:11 C-REACTIVE PROTEIN [CHEM] AM CBC WITH AUTO DIFF [HEME] AM COMPREHENSIVE METABOLIC PN,CMP [CHEM] AM MAGNESIUM [CHEM] AM 11/18/18 05:11 C-REACTIVE PROTEIN [CHEM] AM CBC WITH AUTO DIFF [HEME] AM COMPREHENSIVE METABOLIC PN,CMP [CHEM] AM MAGNESIUM [CHEM] AM - Plan Plan:: Assessment * 47-year-old female recently admitted for pyelonephritis with recurrence. Escherichia coli on culture from previous hospitalization per patient not sensitive to Bactrim. * Acute kidney injury * Hypokalemia * Hypertension Plan * Admit to [facility] on telemetry * Switch antibiotics to Rocephin 2 g daily due to sensitivities from recent hospitalization * replenish potassium and recheck * IV rehydration * Pain control with oxycodone and Dilaudid, Zofran for nausea * Restart amlodipine for hypertension. * request records from [facility] [place]. * Patient called her pharmacy and Cefdinir was called in by the hospital. * CBC, CMP, C-reactive protein, and magnesium daily * CODE STATUS: Full code * VTE prophylaxis with Lovenox
[2018-11-15] MEDS: amLODIPine 10 MG Tab PO SCH (20:55)
[2018-11-16] MEDS: Enoxaparin 40 MG/0.4 ML Syringe SUBCUT SCH (08:59)
[2018-11-16] MEDS: Ondansetron 4 MG/2 ML SDV IV PRN (09:02)
[2018-11-16] MEDS: oxyCODONE 5 MG Tab PO PRN (09:04)
[2018-11-16] MEDS: Acetaminophen 325 MG Tab PO PRN (09:05)
[2018-11-16] MEDS ORDERED: methylPREDNISolone Sodium Succinate 125 MG/2 ML SDV IVPUSH ONE (10:00)
[2018-11-16] MEDS ORDERED: Lactated Ringers 1,000 ML IV ONE (10:15)
[2018-11-16] MEDS ORDERED: Iopamidol 612 MG/ML 100 ML Bottle IVPUSH ONE (11:29)
[2018-11-16] MEDS ORDERED: Sodium Chloride 0.9% 10 ML Syringe FLUSH ONE (11:29)
[2018-11-16] MEDS ORDERED: Sodium Chloride 0.9% 100 ML IV SCH (11:30)
[2018-11-16] MEDS ORDERED: diphenhydrAMINE 50 MG/ML SDV IVPUSH ONE (11:30)
[2018-11-16] MEDS ORDERED: Diatrizoate Meglumine/Diatrizoate Sodium 37% 120 ML Bottle PO ONE (12:05)
[2018-11-16] MEDS: cefTRIAXone 2 GM in Sodium Chloride 0.9% 100 ML IV SCH (16:10)
--- NOTE | 2018-11-16 17:54 | PCM.PN ---
- General Info Date of Service: 11/16/18 Admission Dx/Problem (Free Text): Admission Diagnosis/Problem Admission Diagnosis/Problem Pyelonephritis Subjective Update: patient had another fever over 101 last night. We did switch her from meropenem to Rocephin. She did have an improvement in her white count and her C-reactive protein though. She continues to have right flank pain that has not changed in the last 24-[address] of the chest, abdomen, and pelvis with contrast was performed. Chest impression: 1. Small bilateral pleural effusions. 2. Mild opacities in the lower lobes may represent atelectasis or pneumonia. Abdomen and pelvis impression: 1. Enhancing mucosa in the right collecting system and right ureter consistent with pyelonephritis. 13 mm low-attenuation area in the posterior right kidney may reflect pyelonephritis. 2. The bladder wall measures 10 mm. This is nonspecific and may represent inflammation or infection. Neoplastic process included in the differential. 3. Moderate diverticulosis of the rectosigmoid. Mild pericolonic inflammatory changes may represent mild diverticulitis in the appropriate clinical setting. 4. 9 mm nodule anterior right lobe of the liver are 41 Hounsfield units. For a low risk patient, recommend follow-up CT or MRI in 6 months. For average risk patients, recommend multiphase MRI in 6 months. For high risk patients, recommend multiphase MRI and consider biopsy. Functional Status: Reports: Pain Controlled - Review of Systems General: Reports: Fever, Fatigue, Chills HEENT: Reports: No Symptoms Pulmonary: Reports: No Symptoms Cardiovascular: Reports: No Symptoms Gastrointestinal: Reports: Abdominal Pain Musculoskeletal: Reports: No Symptoms - Patient Data Vitals - Most Recent: Last Vital Signs Temp 97.2 F 11/16/18 16:06 Pulse 85 11/16/18 16:06 Resp 16 11/16/18 16:06 BP 134/85 11/16/18 16:06 Pulse Ox 95 11/16/18 16:06 Weight - Most Recent: 174 lb 1.6 oz I&O - Last 24 Hours: Intake & Output 11/16/18 11/16/18 11/16/18 06:59 14:59 22:59 Intake Total 538 956 4792 Output Total 1700 1500 Balance -900 240 600 Lab Results Last 24 Hours: Laboratory Results - last 24 hr 11/16/18 11/16/18 11/16/18 Range/Units 05:17 05:17 13:19 WBC 9.97 (3.98-10.04) K/mm3 RBC 2.97 L (3.98-5.22) M/mm3 Hgb 9.4 L (11.2-15.7) gm/L Hct 29.7 L (34.1-44.9) % MCV 100.0 H (79.4-94.8) fl MCH 31.6 (25.6-32.2) pg MCHC 31.6 L (32.2-35.5) g/dl RDW Std Deviation 51.6 H (36.4-46.3) fL Plt Count 385 H D (182-369) K/mm3 MPV 9.8 (9.4-12.3) fl Neut % (Auto) 58.2 (34.0-71.1) % Lymph % (Auto) 25.7 (19.3-51.7) % [place] % (Auto) 12.5 (4.7-12.5) % Eos % (Auto) 1.1 (0.7-5.8) Baso % (Auto) 1.1 (0.1-1.2) % Neut # (Auto) 5.80 (1.56-6.13) K/mm3 Lymph # (Auto) 2.56 (1.18-3.74) K/mm3 [place] # (Auto) 1.25 H (0.24-0.36) K/mm3 Eos # (Auto) 0.11 (0.04-0.36) K/mm3 Baso # (Auto) 0.11 H (0.01-0.08) K/mm3 Manual Slide Review Abnormal smear Sodium 142 (136-145) mEq/L Potassium 3.7 (3.5-5.1) mEq/L Chloride 104 (98-107) mEq/L Carbon Dioxide 29 (21-32) mEq/L Anion Gap 12.7 (5-15) BUN 11 (7-18) mg/dL Creatinine 1.3 H (0.55-1.02) mg/dL Est Cr Clr Drug Dosing 49.54 mL/min Estimated GFR (MDRD) 44 (>60) mL/min BUN/Creatinine Ratio 8.5 L (14-18) Glucose 96 (74-106) mg/dL Calcium 8.4 L (8.5-10.1) mg/dL Magnesium 2.1 (1.8-2.4) mg/dl Total Bilirubin 0.2 (0.2-1.0) mg/dL AST 18 (15-37) U/L ALT 27 (14-59) U/L Alkaline Phosphatase 99 (46-116) U/L C-Reactive Protein 14.6 H* (<1.0) mg/dL Total Protein 6.1 L (6.4-8.2) g/dl Albumin 2.1 L (3.4-5.0) g/dl Globulin 4.0 gm/dL Albumin/Globulin Ratio 0.5 L (1-2) Urine Color Yellow (Yellow) Urine Appearance Clear (Clear) Urine pH 7.5 (5.0-8.0) Ur Specific [place] 1.015 (1.005-1.030) Urine Protein Negative (Negative) Urine Glucose (UA) Negative (Negative) Urine Ketones Negative (Negative) Urine Occult Blood 2+ H (Negative) Urine Nitrite Negative (Negative) Urine Bilirubin Negative (Negative) Urine Urobilinogen 0.2 (0.2-1.0) Ur Leukocyte Esterase Trace H (Negative) Urine RBC 0-5 (0-5) /hpf Urine WBC 0-5 (0-5) /hpf Ur Epithelial Cells 0-5 (0-5) /hpf Urine Bacteria Not seen (FEW) /hpf Urine Mucus Not seen (FEW) /hpf [facility] Results Last 24 Hours: Microbiology 11/13/18 15:59 Aerobic Blood Culture - Preliminary Blood - Venous NO GROWTH AFTER 3 DAYS Anaerobic Blood Culture - Preliminary NO GROWTH AFTER 3 DAYS 11/13/18 16:03 Aerobic Blood Culture - Preliminary Blood - Venous - Lab Draw NO GROWTH AFTER 3 DAYS Anaerobic Blood Culture - Preliminary NO GROWTH AFTER 3 DAYS Med Orders - Current: Current Medications Acetaminophen (Tylenol) 650 mg PO Q4H PRN PRN Reason: Pain (Mild 1-3)/fever Last Admin: 11/16/18 09:05 Dose: 650 mg Amlodipine Besylate (Norvasc) 10 mg PO BEDTIME [facility] Last Admin: 11/15/18 20:55 Dose: 10 mg Bisacodyl (Dulcolax) 5 mg PO DAILY PRN PRN Reason: Constipation Last Admin: 11/14/18 12:22 Dose: 5 mg Enoxaparin Sodium (Lovenox) 40 mg SUBCUT DAILY [facility] Last Admin: 11/16/18 08:59 Dose: 40 mg Hydromorphone HCl (Dilaudid) 0.5 mg IVPUSH Q2H PRN PRN Reason: Pain (severe 7-10) Last Admin: 11/14/18 16:23 Dose: 0.5 mg Ceftriaxone Sodium 2 gm/ (Sodium Chloride) 100 mls @ 200 mls/hr IV Q24H [facility] Last Admin: 11/16/18 16:10 Dose: 200 mls/hr Sodium Chloride (Normal Saline) 100 mls @ 60 mls/hr IV ASDIRECTED [facility] Ondansetron HCl (Zofran) 4 mg IV Q4H PRN PRN Reason: Nausea/Vomiting Last Admin: 11/16/18 09:02 Dose: 4 mg Oxycodone HCl (Oxycodone) 5 mg PO Q4H PRN PRN Reason: Pain (moderate 4-6) Last Admin: 11/16/18 09:04 Dose: 5 mg Polyethylene Glycol (Miralax) 17 gm PO DAILY PRN PRN Reason: Constipation Last Admin: 11/14/18 20:30 Dose: 17 gm Sodium Chloride (Saline Flush) 10 ml FLUSH ASDIRECTED PRN PRN Reason: Keep Vein Open Last Admin: 11/13/18 17:20 Dose: 10 ml Discontinued Medications Amlodipine Besylate (Norvasc) 10 mg PO NOW STA Stop: 11/13/18 21:46 Last Admin: 11/13/18 22:24 Dose: 10 mg Bisacodyl (Dulcolax) 10 mg RECTAL ONETIME ONE Stop: 11/15/18 10:43 Last Admin: 11/15/18 10:52 Dose: 10 mg Diatrizoate Meglum/Diatrizoate Sod (Gastrografin 37%) 90 ml PO ONETIME ONE Stop: 11/16/18 12:06 Last Admin: 11/16/18 12:08 Dose: 90 ml Diphenhydramine HCl (Benadryl) 50 mg IVPUSH ONETIME ONE Stop: 11/16/18 11:31 Last Admin: 11/16/18 11:31 Dose: 50 mg Hydromorphone HCl (Dilaudid) 1 mg IVPUSH ONETIME ONE Stop: 11/13/18 17:26 Last Admin: 11/13/18 17:40 Dose: 1 mg Ceftriaxone Sodium 2 gm/ (Sodium Chloride) 100 mls @ 200 mls/hr IV STAT ONE Stop: 11/13/18 16:04 Last Admin: 11/13/18 16:58 Dose: Not Given Sodium Chloride (Normal Saline) 1,000 mls @ 1,000 mls/hr IV ONETIME ONE Stop: 11/13/18 16:36 Last Admin: 11/13/18 16:08 Dose: 1,000 mls/hr Ceftriaxone Sodium 2 gm/ (Sodium Chloride) 100 mls @ 200 mls/hr IV ONETIME ONE Stop: 11/13/18 16:20 Last Admin: 11/13/18 16:10 Dose: 200 mls/hr Potassium Chloride 10 meq/ (Premix) 100 mls @ 100 mls/hr IV ASDIRECTED [facility] Last Admin: 11/13/18 19:52 Dose: 100 mls/hr Sodium Chloride (Normal Saline) 1,000 mls @ 50 mls/hr IV ASDIRECTED [facility] Last Admin: 11/13/18 19:52 Dose: 50 mls/hr Lactated Ringer's (Ringers, Lactated) 1,000 mls @ 125 mls/hr IV ASDIRECTED [facility] Last Admin: 11/14/18 06:40 Dose: 125 mls/hr Potassium Chloride 10 meq/ (Premix) 100 mls @ 100 mls/hr IV Q1H [facility] Stop: 11/14/18 01:44 Last Admin: 11/14/18 01:40 Dose: 100 mls/hr Meropenem 1 gm/ Sodium (Chloride) 100 mls @ 200 mls/hr IV Q8H [facility] Last Admin: 11/14/18 08:07 Dose: Not Given Meropenem/Sodium Chloride 500 (mg/ Premix) 50 mls @ 100 mls/hr IV Q8H [facility] Last Admin: 11/15/18 08:35 Dose: 100 mls/hr Potassium Chloride 10 meq/ (Premix) 100 mls @ 100 mls/hr IV Q1H [facility] Stop: 11/14/18 12:14 Last Admin: 11/14/18 14:35 Dose: 100 mls/hr Magnesium Sulfate 4 gm/ Premix 50 mls @ 12.5 mls/hr IV ONETIME ONE Stop: 11/14/18 12:13 Last Admin: 11/14/18 08:51 Dose: 12.5 mls/hr Lactated Ringer's (Ringers, Lactated) 1,000 mls @ 500 mls/hr IV STAT ONE Stop: 11/16/18 12:14 Last Admin: 11/16/18 10:21 Dose: 500 mls/hr Iopamidol (Isovue-300 (61%)) 100 ml IVPUSH ONETIME ONE Stop: 11/16/18 11:30 Last Admin: 11/16/18 12:04 Dose: 100 ml Magnesium Hydroxide (Milk Of Magnesia) 30 ml PO ONETIME ONE Stop: 11/15/18 12:36 Last Admin: 11/15/18 12:54 Dose: 30 ml Methylprednisolone Sodium Succinate (Solu-Medrol) 125 mg IVPUSH ONETIME ONE Stop: 11/16/18 10:01 Last Admin: 11/16/18 10:13 Dose: 125 mg Ondansetron HCl (Zofran) 4 mg IVPUSH ONETIME ONE Stop: 11/13/18 17:43 Last Admin: 11/13/18 17:47 Dose: 4 mg Sodium Chloride (Saline Flush) 10 ml FLUSH ONETIME ONE Stop: 11/16/18 11:30 Last Admin: 11/16/18 12:04 Dose: 10 ml - Exam General: Alert, Oriented HEENT: Pupils Equal, Mucous Membr. Moist/[place] Neck: Supple Lungs: Clear to Auscultation, Normal Respiratory Effort Cardiovascular: Regular Rate, Regular Rhythm GI/Abdominal Exam: Normal Bowel Sounds, Soft, No Distention, Tender (right upper quadrant and flank tenderness without guarding or rebound) Extremities: Normal Inspection, Normal Range of Motion, Non-Tender, No Pedal Edema Skin: Warm, Dry, Intact Neurological: No New Focal Deficit Psy/Mental Status: Alert, Normal Affect, Normal Mood - Problem List Review Problem List Initiated/Reviewed/Updated: Yes - My Orders Last 24 Hours: My Active Orders 11/16/18 09:44 Chest Abdomen Pelvis w Cont [CT] Urgent 11/16/18 11:30 Sodium Chloride 0.9% [Normal Saline] 100 ml IV ASDIRECTED 11/17/18 05:11 C-REACTIVE PROTEIN [CHEM] AM CBC WITH AUTO DIFF [HEME] AM COMPREHENSIVE METABOLIC PN,CMP [CHEM] AM MAGNESIUM [CHEM] AM 11/18/18 05:11 C-REACTIVE PROTEIN [CHEM] AM CBC WITH AUTO DIFF [HEME] AM COMPREHENSIVE METABOLIC PN,CMP [CHEM] AM MAGNESIUM [CHEM] AM - Plan Plan:: Assessment * 47-year-old female recently admitted for pyelonephritis with recurrence. Escherichia coli on culture from previous hospitalization per patient not sensitive to Bactrim. * white count and C-reactive protein are both improving. * possible diverticulitis based on CT scan * 9 mm nodule anterior right lobe of the liver needs follow-up in 6 months * Atelectasis versus pneumonia * Acute kidney injury * Hypokalemia * Hypertension Plan * Admit to MedSur * Rocephin 2 g daily due to sensitivities from recent hospitalization * encourage incentive spirometer * add Flagyl for possible diverticulitis * Pain control with oxycodone and Dilaudid, Zofran for nausea * amlodipine for hypertension. * request records from [facility]. * CBC, CMP, C-reactive protein, and magnesium daily * CODE STATUS: Full code * VTE prophylaxis with Lovenox CT of the chest, abdomen, and pelvis with contrast was performed. Chest impression: 1. Small bilateral pleural effusions. 2. Mild opacities in the lower lobes may represent atelectasis or pneumonia. Abdomen and pelvis impression: 1. Enhancing mucosa in the right collecting system and right ureter consistent with pyelonephritis. 13 mm low-attenuation area in the posterior right kidney may reflect pyelonephritis. 2. The bladder wall measures 10 mm. This is nonspecific and may represent inflammation or infection. Neoplastic process included in the differential. 3. Moderate diverticulosis of the rectosigmoid. Mild pericolonic inflammatory changes may represent mild diverticulitis in the appropriate clinical setting. 4. 9 mm nodule anterior right lobe of the liver are 41 Hounsfield units. For a low risk patient, recommend follow-up CT or MRI in 6 months. For average risk patients, recommend multiphase MRI in 6 months. For high risk patients, recommend multiphase MRI and consider biopsy.
[2018-11-16] MEDS: metroNIDAZOLE/Normal Saline 500 MG in Premix Bag 1 BAG IV SCH (18:41)
[2018-11-16] MEDS: amLODIPine 10 MG Tab PO SCH (20:31)
[2018-11-17] MEDS: metroNIDAZOLE/Normal Saline 500 MG in Premix Bag 1 BAG IV SCH ×3 (02:14→17:14)
[2018-11-17] MEDS: Ondansetron 4 MG/2 ML SDV IV PRN ×4 (02:14→20:21)
[2018-11-17] MEDS: oxyCODONE 5 MG Tab PO PRN ×3 (02:14→15:34)
[2018-11-17] MEDS: Enoxaparin 40 MG/0.4 ML Syringe SUBCUT SCH (09:19)
--- NOTE | 2018-11-17 09:33 | PCM.PN ---
- General Info Date of Service: 11/17/18 Admission Dx/Problem (Free Text): Admission Diagnosis/Problem Admission Diagnosis/Problem Pyelonephritis Subjective Update: Patient states that she is starting to feel better. She still has right flank pain, but was able to get up and take a shower today. She was afebrile overnight. - Review of Systems General: Reports: Fatigue. Denies: Fever HEENT: Reports: No Symptoms Pulmonary: Reports: No Symptoms Cardiovascular: Reports: No Symptoms Gastrointestinal: Reports: Abdominal Pain (Right flank pain), Decreased Appetite Genitourinary: Reports: No Symptoms. Denies: Dysuria Neurological: Reports: No Symptoms Psychiatric: Reports: No Symptoms - Patient Data Vitals - Most Recent: Last Vital Signs Temp 97.2 F 11/17/18 09:16 Pulse 78 11/17/18 09:16 Resp 14 11/17/18 09:16 BP 131/76 11/17/18 09:16 Pulse Ox 98 11/17/18 09:16 Weight - Most Recent: 172 lb 11.2 oz I&O - Last 24 Hours: Intake & Output 11/16/18 11/17/18 11/17/18 22:59 06:59 14:59 Intake Total 2200 900 Output Total 1500 1100 Balance 700 -200 Lab Results Last 24 Hours: Laboratory Results - last 24 hr 11/16/18 11/17/18 11/17/18 Range/Units 13:19 05:20 05:20 WBC 12.68 H (3.98-10.04) K/mm3 RBC 2.95 L (3.98-5.22) M/mm3 Hgb 9.5 L (11.2-15.7) gm/L Hct 29.3 L (34.1-44.9) % MCV 99.3 H (79.4-94.8) fl MCH 32.2 (25.6-32.2) pg MCHC 32.4 (32.2-35.5) g/dl RDW Std Deviation 50.0 H (36.4-46.3) fL Plt Count 427 H (182-369) K/mm3 MPV 9.8 (9.4-12.3) fl Neut % (Auto) 80.0 H (34.0-71.1) % Lymph % (Auto) 11.8 L (19.3-51.7) % [place] % (Auto) 7.0 (4.7-12.5) % Eos % (Auto) 0 L (0.7-5.8) Baso % (Auto) 0.2 (0.1-1.2) % Neut # (Auto) 10.14 H (1.56-6.13) K/mm3 Lymph # (Auto) 1.50 (1.18-3.74) K/mm3 [place] # (Auto) 0.89 H (0.24-0.36) K/mm3 Eos # (Auto) 0.00 L (0.04-0.36) K/mm3 Baso # (Auto) 0.02 (0.01-0.08) K/mm3 Manual Slide Review Abnormal smear Sodium 137 (136-145) mEq/L Potassium 3.7 (3.5-5.1) mEq/L Chloride 103 (98-107) mEq/L Carbon Dioxide 25 (21-32) mEq/L Anion Gap 12.7 (5-15) BUN 16 (7-18) mg/dL Creatinine 1.1 H (0.55-1.02) mg/dL Est Cr Clr Drug Dosing 58.55 mL/min Estimated GFR (MDRD) 53 (>60) mL/min BUN/Creatinine Ratio 14.5 (14-18) Glucose 148 H (74-106) mg/dL Calcium 8.9 (8.5-10.1) mg/dL Magnesium 2.2 (1.8-2.4) mg/dl Total Bilirubin 0.1 L (0.2-1.0) mg/dL AST 17 (15-37) U/L ALT 29 (14-59) U/L Alkaline Phosphatase 98 (46-116) U/L C-Reactive Protein 10.8 H* (<1.0) mg/dL Total Protein 6.4 (6.4-8.2) g/dl Albumin 2.2 L (3.4-5.0) g/dl Globulin 4.2 gm/dL Albumin/Globulin Ratio 0.5 L (1-2) Urine Color Yellow (Yellow) Urine Appearance Clear (Clear) Urine pH 7.5 (5.0-8.0) Ur Specific [place] 1.015 (1.005-1.030) Urine Protein Negative (Negative) Urine Glucose (UA) Negative (Negative) Urine Ketones Negative (Negative) Urine Occult Blood 2+ H (Negative) Urine Nitrite Negative (Negative) Urine Bilirubin Negative (Negative) Urine Urobilinogen 0.2 (0.2-1.0) Ur Leukocyte Esterase Trace H (Negative) Urine RBC 0-5 (0-5) /hpf Urine WBC 0-5 (0-5) /hpf Ur Epithelial Cells 0-5 (0-5) /hpf Urine Bacteria Not seen (FEW) /hpf Urine Mucus Not seen (FEW) /hpf [place] Results Last 24 Hours: Microbiology 11/13/18 15:59 Aerobic Blood Culture - Preliminary Blood - Venous NO GROWTH AFTER 3 DAYS Anaerobic Blood Culture - Preliminary NO GROWTH AFTER 3 DAYS 11/13/18 16:03 Aerobic Blood Culture - Preliminary Blood - Venous - Lab Draw NO GROWTH AFTER 3 DAYS Anaerobic Blood Culture - Preliminary NO GROWTH AFTER 3 DAYS Med Orders - Current: Current Medications Acetaminophen (Tylenol) 650 mg PO Q4H PRN PRN Reason: Pain (Mild 1-3)/fever Last Admin: 11/16/18 09:05 Dose: 650 mg Amlodipine Besylate (Norvasc) 10 mg PO BEDTIME [facility] Last Admin: 11/16/18 20:31 Dose: 10 mg Bisacodyl (Dulcolax) 5 mg PO DAILY PRN PRN Reason: Constipation Last Admin: 11/14/18 12:22 Dose: 5 mg Enoxaparin Sodium (Lovenox) 40 mg SUBCUT DAILY [facility] Last Admin: 11/17/18 09:19 Dose: 40 mg Hydromorphone HCl (Dilaudid) 0.5 mg IVPUSH Q2H PRN PRN Reason: Pain (severe 7-10) Last Admin: 11/14/18 16:23 Dose: 0.5 mg Ceftriaxone Sodium 2 gm/ (Sodium Chloride) 100 mls @ 200 mls/hr IV Q24H [facility] Last Admin: 11/16/18 16:10 Dose: 200 mls/hr Metronidazole 500 mg/ Premix 100 mls @ 100 mls/hr IV Q8H [facility] Last Admin: 11/17/18 09:21 Dose: 100 mls/hr Ondansetron HCl (Zofran) 4 mg IV Q4H PRN PRN Reason: Nausea/Vomiting Last Admin: 11/17/18 09:20 Dose: 4 mg Oxycodone HCl (Oxycodone) 5 mg PO Q4H PRN PRN Reason: Pain (moderate 4-6) Last Admin: 11/17/18 09:19 Dose: 5 mg Polyethylene Glycol (Miralax) 17 gm PO DAILY PRN PRN Reason: Constipation Last Admin: 11/14/18 20:30 Dose: 17 gm Sodium Chloride (Saline Flush) 10 ml FLUSH ASDIRECTED PRN PRN Reason: Keep Vein Open Last Admin: 11/13/18 17:20 Dose: 10 ml Discontinued Medications Amlodipine Besylate (Norvasc) 10 mg PO NOW STA Stop: 11/13/18 21:46 Last Admin: 11/13/18 22:24 Dose: 10 mg Bisacodyl (Dulcolax) 10 mg RECTAL ONETIME ONE Stop: 11/15/18 10:43 Last Admin: 11/15/18 10:52 Dose: 10 mg Diatrizoate Meglum/Diatrizoate Sod (Gastrografin 37%) 90 ml PO ONETIME ONE Stop: 11/16/18 12:06 Last Admin: 11/16/18 12:08 Dose: 90 ml Diphenhydramine HCl (Benadryl) 50 mg IVPUSH ONETIME ONE Stop: 11/16/18 11:31 Last Admin: 11/16/18 11:31 Dose: 50 mg Hydromorphone HCl (Dilaudid) 1 mg IVPUSH ONETIME ONE Stop: 11/13/18 17:26 Last Admin: 11/13/18 17:40 Dose: 1 mg Ceftriaxone Sodium 2 gm/ (Sodium Chloride) 100 mls @ 200 mls/hr IV STAT ONE Stop: 11/13/18 16:04 Last Admin: 11/13/18 16:58 Dose: Not Given Sodium Chloride (Normal Saline) 1,000 mls @ 1,000 mls/hr IV ONETIME ONE Stop: 11/13/18 16:36 Last Admin: 11/13/18 16:08 Dose: 1,000 mls/hr Ceftriaxone Sodium 2 gm/ (Sodium Chloride) 100 mls @ 200 mls/hr IV ONETIME ONE Stop: 11/13/18 16:20 Last Admin: 11/13/18 16:10 Dose: 200 mls/hr Potassium Chloride 10 meq/ (Premix) 100 mls @ 100 mls/hr IV ASDIRECTED [facility] Last Admin: 11/13/18 19:52 Dose: 100 mls/hr Sodium Chloride (Normal Saline) 1,000 mls @ 50 mls/hr IV ASDIRECTED [facility] Last Admin: 11/13/18 19:52 Dose: 50 mls/hr Lactated Ringer's (Ringers, Lactated) 1,000 mls @ 125 mls/hr IV ASDIRECTED [facility] Last Admin: 11/14/18 06:40 Dose: 125 mls/hr Potassium Chloride 10 meq/ (Premix) 100 mls @ 100 mls/hr IV Q1H [facility] Stop: 11/14/18 01:44 Last Admin: 11/14/18 01:40 Dose: 100 mls/hr Meropenem 1 gm/ Sodium (Chloride) 100 mls @ 200 mls/hr IV Q8H [facility] Last Admin: 11/14/18 08:07 Dose: Not Given Meropenem/Sodium Chloride 500 (mg/ Premix) 50 mls @ 100 mls/hr IV Q8H [facility] Last Admin: 11/15/18 08:35 Dose: 100 mls/hr Potassium Chloride 10 meq/ (Premix) 100 mls @ 100 mls/hr IV Q1H [facility] Stop: 11/14/18 12:14 Last Admin: 11/14/18 14:35 Dose: 100 mls/hr Magnesium Sulfate 4 gm/ Premix 50 mls @ 12.5 mls/hr IV ONETIME ONE Stop: 11/14/18 12:13 Last Admin: 11/14/18 08:51 Dose: 12.5 mls/hr Lactated Ringer's (Ringers, Lactated) 1,000 mls @ 500 mls/hr IV STAT ONE Stop: 11/16/18 12:14 Last Admin: 11/16/18 10:21 Dose: 500 mls/hr Sodium Chloride (Normal Saline) 100 mls @ 60 mls/hr IV ASDIRECTED [facility] Iopamidol (Isovue-300 (61%)) 100 ml IVPUSH ONETIME ONE Stop: 11/16/18 11:30 Last Admin: 11/16/18 12:04 Dose: 100 ml Magnesium Hydroxide (Milk Of Magnesia) 30 ml PO ONETIME ONE Stop: 11/15/18 12:36 Last Admin: 11/15/18 12:54 Dose: 30 ml Methylprednisolone Sodium Succinate (Solu-Medrol) 125 mg IVPUSH ONETIME ONE Stop: 11/16/18 10:01 Last Admin: 11/16/18 10:13 Dose: 125 mg Ondansetron HCl (Zofran) 4 mg IVPUSH ONETIME ONE Stop: 11/13/18 17:43 Last Admin: 11/13/18 17:47 Dose: 4 mg Sodium Chloride (Saline Flush) 10 ml FLUSH ONETIME ONE Stop: 11/16/18 11:30 Last Admin: 11/16/18 12:04 Dose: 10 ml - Exam Quality Assessment: No: Supplemental Oxygen General: Alert, Oriented HEENT: Pupils Equal, Mucous Membr. Moist/[place] Neck: Supple Lungs: Clear to Auscultation, Normal Respiratory Effort Cardiovascular: Regular Rate, Regular Rhythm GI/Abdominal Exam: Normal Bowel Sounds, Soft, Tender (Right CVA tenderness and right upper quadrant tenderness with mild left lower quadrant tenderness) - Problem List Review Problem List Initiated/Reviewed/Updated: Yes - My Orders Last 24 Hours: My Active Orders 11/16/18 09:44 Chest Abdomen Pelvis w Cont [CT] Urgent 11/16/18 18:15 metroNIDAZOLE/Normal Saline [Flagyl 500 MG in NS 100 ML] 500 mg Premix Bag 1 bag IV Q8H 11/16/18 18:37 Incentive Spirometry [RT Incentive Spirometry] [RC] Q2HWA 11/18/18 05:11 C-REACTIVE PROTEIN [CHEM] AM CBC WITH AUTO DIFF [HEME] AM COMPREHENSIVE METABOLIC PN,CMP [CHEM] AM MAGNESIUM [CHEM] AM - Plan Plan:: Assessment * 47-year-old female recently admitted for pyelonephritis with recurrence. Escherichia coli on culture from previous hospitalization per patient not sensitive to Bactrim. * Escherichia coli bacteremia - 2 out of 2 blood cultures positive for Escherichia coli from her hospitalization in [place] * Possible diverticulitis based on CT scan done 11/16/2018 * 9 mm nodule anterior right lobe of the liver needs follow-up in 6 months * Atelectasis versus pneumonia * Acute kidney injury * Hypokalemia - resolved * Hypertension - improved Plan * Admit to MedSur * Rocephin 2 g daily due to sensitivities from recent hospitalization * Flagyl for possible diverticulitis * Encourage incentive spirometer * Pain control with oxycodone and Dilaudid, Zofran for nausea * amlodipine for hypertension. * Received records from [facility]. In chart. * CBC, CMP, C-reactive protein, and magnesium daily * CODE STATUS: Full code * VTE prophylaxis with Lovenox CT of the chest, abdomen, and pelvis with contrast was performed 11/16/2018. Chest impression: 1. Small bilateral pleural effusions. 2. Mild opacities in the lower lobes may represent atelectasis or pneumonia. Abdomen and pelvis impression: 1. Enhancing mucosa in the right collecting system and right ureter consistent with pyelonephritis. 13 mm low-attenuation area in the posterior right kidney may reflect pyelonephritis. 2. The bladder wall measures 10 mm. This is nonspecific and may represent inflammation or infection. Neoplastic process included in the differential. 3. Moderate diverticulosis of the rectosigmoid. Mild pericolonic inflammatory changes may represent mild diverticulitis in the appropriate clinical setting. 4. 9 mm nodule anterior right lobe of the liver are 41 Hounsfield units. For a low risk patient, recommend follow-up CT or MRI in 6 months. For average risk patients, recommend multiphase MRI in 6 months. For high risk patients, recommend multiphase MRI and consider biopsy.
[2018-11-17] MEDS: cefTRIAXone 2 GM in Sodium Chloride 0.9% 100 ML IV SCH (15:31)
[2018-11-17] MEDS: amLODIPine 10 MG Tab PO SCH (20:22)
[2018-11-18] MEDS: metroNIDAZOLE/Normal Saline 500 MG in Premix Bag 1 BAG IV SCH ×3 (02:20→18:13)
[2018-11-18] MEDS: Promethazine 25 MG Tab PO PRN ×3 (02:22→16:48)
--- NOTE | 2018-11-18 08:31 | PCM.PN ---
- General Info Date of Service: 11/18/18 Admission Dx/Problem (Free Text): Admission Diagnosis/Problem Admission Diagnosis/Problem Pyelonephritis Subjective Update: No overnight or acute issues. She slept good and feels pretty good this morning. She is tolerating her current diet. She reports no nausea, vomiting or diarrhea. She is slightly low on K level. Functional Status: Reports: Pain Controlled, Tolerating Diet, Ambulating, Urinating Pain Score: 4 - Review of Systems General: Denies: Fever, Weakness, Fatigue, Malaise HEENT: Reports: No Symptoms Pulmonary: Denies: Shortness of Breath Cardiovascular: Denies: Chest Pain, Dyspnea on Exertion, Lightheadedness Gastrointestinal: Denies: Abdominal Pain Genitourinary: Reports: No Symptoms Musculoskeletal: Reports: No Symptoms Skin: Denies: Cyanosis, Pallor, Diaphoresis, Rash Neurological: Denies: Dizziness, Difficulty Walking, Weakness, Gait Disturbance Psychiatric: Denies: Depression, Anxiety, Agitation, Hallucinations - Patient Data Vitals - Most Recent: Last Vital Signs Temp 37.0 C 11/18/18 04:45 Pulse 75 11/18/18 04:45 Resp 16 11/18/18 04:45 BP 118/92 H 11/18/18 04:45 Pulse Ox 96 11/18/18 04:45 Weight - Most Recent: 77.428 kg I&O - Last 24 Hours: Intake & Output 11/17/18 11/18/18 11/18/18 22:59 06:59 14:59 Intake Total 1698 900 Output Total 1200 1000 Balance 498 -100 Lab Results Last 24 Hours: Laboratory Results - last 24 hr 11/18/18 11/18/18 Range/Units 05:15 05:15 WBC 13.62 H (3.98-10.04) K/mm3 RBC 2.96 L (3.98-5.22) M/mm3 Hgb 9.4 L (11.2-15.7) gm/L Hct 29.8 L (34.1-44.9) % MCV 100.7 H (79.4-94.8) fl MCH 31.8 (25.6-32.2) pg MCHC 31.5 L (32.2-35.5) g/dl RDW Std Deviation 53.0 H (36.4-46.3) fL Plt Count 551 H D (182-369) K/mm3 MPV 9.4 (9.4-12.3) fl Neut % (Auto) 73.0 H (34.0-71.1) % Lymph % (Auto) 17.9 L (19.3-51.7) % [place] % (Auto) 7.0 (4.7-12.5) % Eos % (Auto) 0.2 L (0.7-5.8) Baso % (Auto) 0.1 (0.1-1.2) % Neut # (Auto) 9.93 H (1.56-6.13) K/mm3 Lymph # (Auto) 2.44 (1.18-3.74) K/mm3 [place] # (Auto) 0.95 H (0.24-0.36) K/mm3 Eos # (Auto) 0.03 L (0.04-0.36) K/mm3 Baso # (Auto) 0.02 (0.01-0.08) K/mm3 Manual Slide Review Abnormal smear Sodium 143 (136-145) mEq/L Potassium 3.3 L (3.5-5.1) mEq/L Chloride 106 (98-107) mEq/L Carbon Dioxide 27 (21-32) mEq/L Anion Gap 13.3 (5-15) BUN 22 H (7-18) mg/dL Creatinine 1.1 H (0.55-1.02) mg/dL Est Cr Clr Drug Dosing 58.55 mL/min Estimated GFR (MDRD) 53 (>60) mL/min BUN/Creatinine Ratio 20.0 H (14-18) Glucose 100 (74-106) mg/dL Calcium 8.6 (8.5-10.1) mg/dL Magnesium 2.0 (1.8-2.4) mg/dl Total Bilirubin 0.2 (0.2-1.0) mg/dL AST 69 H (15-37) U/L ALT 63 H (14-59) U/L Alkaline Phosphatase 104 (46-116) U/L C-Reactive Protein 5.5 H* (<1.0) mg/dL Total Protein 6.5 (6.4-8.2) g/dl Albumin 2.4 L (3.4-5.0) g/dl Globulin 4.1 gm/dL Albumin/Globulin Ratio 0.6 L (1-2) [place] Results Last 24 Hours: Microbiology 11/13/18 15:59 Aerobic Blood Culture - Preliminary Blood - Venous NO GROWTH AFTER 4 DAYS Anaerobic Blood Culture - Preliminary NO GROWTH AFTER 4 DAYS 11/13/18 16:03 Aerobic Blood Culture - Preliminary Blood - Venous - Lab Draw NO GROWTH AFTER 4 DAYS Anaerobic Blood Culture - Preliminary NO GROWTH AFTER 4 DAYS Med Orders - Current: Current Medications Acetaminophen (Tylenol) 650 mg PO Q4H PRN PRN Reason: Pain (Mild 1-3)/fever Last Admin: 11/16/18 09:05 Dose: 650 mg Amlodipine Besylate (Norvasc) 10 mg PO BEDTIME [facility] Last Admin: 11/17/18 20:22 Dose: 10 mg Bisacodyl (Dulcolax) 5 mg PO DAILY PRN PRN Reason: Constipation Last Admin: 11/14/18 12:22 Dose: 5 mg Enoxaparin Sodium (Lovenox) 40 mg SUBCUT DAILY [facility] Last Admin: 11/17/18 09:19 Dose: 40 mg Hydromorphone HCl (Dilaudid) 0.5 mg IVPUSH Q2H PRN PRN Reason: Pain (severe 7-10) Last Admin: 11/14/18 16:23 Dose: 0.5 mg Ceftriaxone Sodium 2 gm/ (Sodium Chloride) 100 mls @ 200 mls/hr IV Q24H [facility] Last Admin: 11/17/18 15:31 Dose: 200 mls/hr Metronidazole 500 mg/ Premix 100 mls @ 100 mls/hr IV Q8H [facility] Last Admin: 11/18/18 02:20 Dose: 100 mls/hr Ondansetron HCl (Zofran) 4 mg IV Q4H PRN PRN Reason: Nausea/Vomiting Last Admin: 11/17/18 20:21 Dose: 4 mg Oxycodone HCl (Oxycodone) 5 mg PO Q4H PRN PRN Reason: Pain (moderate 4-6) Last Admin: 11/17/18 15:34 Dose: 5 mg Polyethylene Glycol (Miralax) 17 gm PO DAILY PRN PRN Reason: Constipation Last Admin: 11/14/18 20:30 Dose: 17 gm Promethazine HCl (Phenergan) 25 mg PO Q4H PRN PRN Reason: Nausea/Vomiting Last Admin: 11/18/18 02:22 Dose: 25 mg Sodium Chloride (Saline Flush) 10 ml FLUSH ASDIRECTED PRN PRN Reason: Keep Vein Open Last Admin: 11/13/18 17:20 Dose: 10 ml Discontinued Medications Amlodipine Besylate (Norvasc) 10 mg PO NOW STA Stop: 11/13/18 21:46 Last Admin: 11/13/18 22:24 Dose: 10 mg Bisacodyl (Dulcolax) 10 mg RECTAL ONETIME ONE Stop: 11/15/18 10:43 Last Admin: 11/15/18 10:52 Dose: 10 mg Diatrizoate Meglum/Diatrizoate Sod (Gastrografin 37%) 90 ml PO ONETIME ONE Stop: 11/16/18 12:06 Last Admin: 11/16/18 12:08 Dose: 90 ml Diphenhydramine HCl (Benadryl) 50 mg IVPUSH ONETIME ONE Stop: 11/16/18 11:31 Last Admin: 11/16/18 11:31 Dose: 50 mg Hydromorphone HCl (Dilaudid) 1 mg IVPUSH ONETIME ONE Stop: 11/13/18 17:26 Last Admin: 11/13/18 17:40 Dose: 1 mg Ceftriaxone Sodium 2 gm/ (Sodium Chloride) 100 mls @ 200 mls/hr IV STAT ONE Stop: 11/13/18 16:04 Last Admin: 11/13/18 16:58 Dose: Not Given Sodium Chloride (Normal Saline) 1,000 mls @ 1,000 mls/hr IV ONETIME ONE Stop: 11/13/18 16:36 Last Admin: 11/13/18 16:08 Dose: 1,000 mls/hr Ceftriaxone Sodium 2 gm/ (Sodium Chloride) 100 mls @ 200 mls/hr IV ONETIME ONE Stop: 11/13/18 16:20 Last Admin: 11/13/18 16:10 Dose: 200 mls/hr Potassium Chloride 10 meq/ (Premix) 100 mls @ 100 mls/hr IV ASDIRECTED ELISEO Last Admin: 11/13/18 19:52 Dose: 100 mls/hr Sodium Chloride (Normal Saline) 1,000 mls @ 50 mls/hr IV ASDIRECTED ELISEO Last Admin: 11/13/18 19:52 Dose: 50 mls/hr Lactated Ringer's (Ringers, Lactated) 1,000 mls @ 125 mls/hr IV ASDIRECTED [facility] Last Admin: 11/14/18 06:40 Dose: 125 mls/hr Potassium Chloride 10 meq/ (Premix) 100 mls @ 100 mls/hr IV Q1H [facility] Stop: 11/14/18 01:44 Last Admin: 11/14/18 01:40 Dose: 100 mls/hr Meropenem 1 gm/ Sodium (Chloride) 100 mls @ 200 mls/hr IV Q8H [facility] Last Admin: 11/14/18 08:07 Dose: Not Given Meropenem/Sodium Chloride 500 (mg/ Premix) 50 mls @ 100 mls/hr IV Q8H [facility] Last Admin: 11/15/18 08:35 Dose: 100 mls/hr Potassium Chloride 10 meq/ (Premix) 100 mls @ 100 mls/hr IV Q1H [facility] Stop: 11/14/18 12:14 Last Admin: 11/14/18 14:35 Dose: 100 mls/hr Magnesium Sulfate 4 gm/ Premix 50 mls @ 12.5 mls/hr IV ONETIME ONE Stop: 11/14/18 12:13 Last Admin: 11/14/18 08:51 Dose: 12.5 mls/hr Lactated Ringer's (Ringers, Lactated) 1,000 mls @ 500 mls/hr IV STAT ONE Stop: 11/16/18 12:14 Last Admin: 11/16/18 10:21 Dose: 500 mls/hr Sodium Chloride (Normal Saline) 100 mls @ 60 mls/hr IV ASDIRECTED [facility] Iopamidol (Isovue-300 (61%)) 100 ml IVPUSH ONETIME ONE Stop: 11/16/18 11:30 Last Admin: 11/16/18 12:04 Dose: 100 ml Magnesium Hydroxide (Milk Of Magnesia) 30 ml PO ONETIME ONE Stop: 11/15/18 12:36 Last Admin: 11/15/18 12:54 Dose: 30 ml Methylprednisolone Sodium Succinate (Solu-Medrol) 125 mg IVPUSH ONETIME ONE Stop: 11/16/18 10:01 Last Admin: 11/16/18 10:13 Dose: 125 mg Ondansetron HCl (Zofran) 4 mg IVPUSH ONETIME ONE Stop: 11/13/18 17:43 Last Admin: 11/13/18 17:47 Dose: 4 mg Sodium Chloride (Saline Flush) 10 ml FLUSH ONETIME ONE Stop: 11/16/18 11:30 Last Admin: 11/16/18 12:04 Dose: 10 ml - Exam Quality Assessment: DVT Prophylaxis General: Alert, Oriented, Cooperative, No Acute Distress HEENT: Pupils Equal, Pupils Reactive, EOMI, Mucous Membr. Moist/[place] Neck: Supple Lungs: Clear to Auscultation, Normal Respiratory Effort Cardiovascular: Regular Rate, Regular Rhythm GI/Abdominal Exam: Normal Bowel Sounds, Soft, Non-Tender, No Organomegaly, No Distention, No Abnormal Bruit, No Mass (Female) Exam: Other (positive right CVA tenderness) Back Exam: Normal Inspection, Full Range of Motion Extremities: Normal Inspection, Normal Range of Motion, Non-Tender, No Pedal Edema, Normal Capillary Refill Peripheral Pulses: 3+: Dorsalis Pedis (L), Dorsalis Pedis (R) Skin: Warm, Dry, Intact Wound/Incisions: Healing Well Neurological: No New Focal Deficit, Normal Gait Psy/Mental Status: Alert, Normal Affect, Normal Mood - Problem List Review Problem List Initiated/Reviewed/Updated: Yes - Plan Plan:: Assessment * 47-year-old female recently admitted for pyelonephritis with recurrence. Escherichia coli on culture from previous hospitalization per patient not sensitive to Bactrim. * Escherichia coli bacteremia - 2 out of 2 blood cultures positive for Escherichia coli from her hospitalization in [place] * Possible diverticulitis based on CT scan done 11/16/2018 * 9 mm nodule anterior right lobe of the liver needs follow-up in 6 months * Atelectasis versus pneumonia * Small B/L Pleural Effusions * Acute kidney injury-improving * Hypokalemia - K of 3.3, replete and monitor * Hypertension - improved * Plan * She is clinically stable * Continue Rocephin 2 g daily due to sensitivities from recent hospitalization * Continue to Flagyl for diverticulitis * Encourage incentive spirometer and to ambulate as tolerated * Pain control with oxycodone and Dilaudid, Zofran for nausea * Amlodipine for hypertension. * Received records from [facility]. In chart. * CBC, CMP, C-reactive protein, and magnesium daily * CODE STATUS: Full code * VTE prophylaxis with Lovenox * Possible discharge in AM CT of the chest, abdomen, and pelvis with contrast was performed 11/16/2018. Chest impression: 1. Small bilateral pleural effusions. 2. Mild opacities in the lower lobes may represent atelectasis or pneumonia. Abdomen and pelvis impression: 1. Enhancing mucosa in the right collecting system and right ureter consistent with pyelonephritis. 13 mm low-attenuation area in the posterior right kidney may reflect pyelonephritis. 2. The bladder wall measures 10 mm. This is nonspecific and may represent inflammation or infection. Neoplastic process included in the differential. 3. Moderate diverticulosis of the rectosigmoid. Mild pericolonic inflammatory changes may represent mild diverticulitis in the appropriate clinical setting. 4. 9 mm nodule anterior right lobe of the liver are 41 Hounsfield units. For a low risk patient, recommend follow-up CT or MRI in 6 months. For average risk patients, recommend multiphase MRI in 6 months. For high risk patients, recommend multiphase MRI and consider biopsy.
[2018-11-18] MEDS: Enoxaparin 40 MG/0.4 ML Syringe SUBCUT SCH (08:38)
--- NOTE | 2018-11-18 08:50 | CT ---
CT abdomen and pelvis Technique: Multiple axial sections were obtained from above the dome of the diaphragm inferiorly through the pubic symphysis. Intravenous contrast was not utilized. Oral contrast also not utilized. Study was performed as a ureteral stone protocol. Comparison: Previous CT abdomen and pelvis study of 11/13/18 performed as a renal stone protocol. Findings: Right ureter is mildly prominent with areas of mild surrounding inflammatory change. No abnormal calcifications are seen along the course of the ureters. Findings are suspicious for recently passed stone as an etiology for the findings. Left kidney shows no ureteral dilatation or ureteral stone. Visualized portions of the lung bases show a small subpleural nodule on the right side measuring 4 mm. Slight parenchymal scarring is seen within the left lung base. Noncontrast appearance of the liver shows no focal abnormality. Spleen appears within normal limits. Adrenal glands show no nodule. Pancreas is within normal limits. Gallbladder contains no calcified gallstones. Aorta shows no aneurysm. No retroperitoneal adenopathy or mesenteric abnormalities are seen. Appendix is seen and is normal in size. No pelvic mass or adenopathy is seen. Diverticuli are seen within the sigmoid and portions of the descending colon. Bone window settings were reviewed which show slight degenerative change within the spine. Small fat-containing umbilical hernia is noted. Impression: 1. Mildly prominent right ureter with slight surrounding inflammatory change. No ureteral stone is seen and findings most likely represent recently passed right ureteral calculus. 2. Small 4 mm nodule within the right lung base. If patient is is a nonsmoker this can be ignored. If patient is a smoker, noncontrast chest CT recommended in 1 year. 3. Other incidental findings as noted above. Diagnostic code #3 I agree with preliminary report from [facility], finalized on 11/13/18, 7:52 PM Central Time
[2018-11-18] MEDS ORDERED: Potassium Chloride 20 MEQ Tab.ER PO ONE (10:15)
[2018-11-18] MEDS: oxyCODONE 5 MG Tab PO PRN ×2 (10:31→20:15)
[2018-11-18] MEDS: cefTRIAXone 2 GM in Sodium Chloride 0.9% 100 ML IV SCH (15:55)
[2018-11-18] MEDS: amLODIPine 10 MG Tab PO SCH (20:14)
[2018-11-19] MEDS: metroNIDAZOLE/Normal Saline 500 MG in Premix Bag 1 BAG IV SCH ×2 (01:28→09:16)
[2018-11-19] MEDS: oxyCODONE 5 MG Tab PO PRN (06:19)
[2018-11-19] MEDS: Promethazine 25 MG Tab PO PRN (06:20)
[2018-11-19] MEDS: Enoxaparin 40 MG/0.4 ML Syringe SUBCUT SCH (09:05)
--- NOTE | 2018-11-19 10:16 | CT ---
CT chest Technique: Multiple axial sections were obtained from above the lung apices inferiorly through the lung bases. Intravenous contrast was utilized. Comparison: No prior chest imaging. Findings: Minimal bilateral pleural effusions are seen. Aorta shows mild atherosclerotic calcification. No aneurysm is seen. Mediastinum and hilar region show no adenopathy. No pericardial thickening is seen. Slight atelectasis felt to be present within both lung bases. Very small subpleural nodule noted within the right lung base measuring 4 mm which is likely incidental. No additional nodule is appreciated. Bone window settings were reviewed which show no acute abnormality. Impression: 1. Small nonspecific bilateral pleural effusions. Mild atelectasis within both lung bases. 2. Small 4 mm subpleural nodule within the right lung base which is most likely incidental. 3. No additional abnormality is appreciated. Diagnostic code #3 I agree with preliminary report from [facility], finalized on 11/16/18, 2:[address] abdomen and pelvis Technique: Multiple axial sections were obtained from above the dome of the diaphragm inferiorly through the pubic symphysis. Intravenous and oral contrast was utilized. Delayed images were also obtained through the abdomen and pelvis. Comparison: Previous noncontrast CT abdomen and pelvis study of 11/13/18. Findings: Right kidney appears somewhat swollen with haziness and poor outline of the cortical medullary junction on delayed images. Delayed images show contrast within the right ureter. Small amount of contrast is noted on delayed images within the left ureter. Contrast is noted within the bladder. Small low density finding noted within the mid right kidney which may represent a slightly complicated cyst as well as representing a focal area of so-called lobar nephronia. Cyst is noted within the left kidney measuring 1.3 cm. Slight haziness is noted around the proximal right ureter. This is compatible with additional change from infection. Small low density finding noted anteriorly within the right lobe of the liver. This measures about 8 mm in size but is too small to evaluate by Hounsfield unit measurements for cyst. This is the only abnormality within the liver and is most likely incidental. Spleen shows no focal abnormality. Adrenal glands show no nodule. Pancreas is within normal limits. Gallbladder contains no calcified gallstones. Aorta shows no aneurysm. No retroperitoneal adenopathy is seen. No mesenteric abnormalities are seen. Diverticuli are seen within the descending and sigmoid colon. No diverticulitis is seen. Free fluid is seen within the pelvis which is most likely reactive from the pyelonephritis. Mild increased stool noted throughout the colon. Bone window settings were reviewed which show slight degenerative change within the spine. No acute osseous abnormality is seen. Impression: 1. Swollen kidney with slight inflammatory change around the proximal right ureter. Findings highly suspicious for right-sided pyelonephritis. Low density finding within the right kidney is seen which may represent complicated cyst or more focal area of poor enhancement due to infection. 2. Increased fluid within the pelvis most likely reactive from the right-sided pyelonephritis. 3. Small abnormality within the liver which is most likely incidental. Diagnostic code #3 I agree with preliminary report from [facility], finalized on 11/16/18, 2:09 PM Central Time
--- NOTE | 2018-11-19 13:18 | PCM.DCSUM1 ---
Discharge Summary - Hospital Course Free Text/Narrative:: 39-year-old female who was discharged yesterday from the hospital in [place] for pyelonephritis presents to the ER with worsening fever, abdominal and right flank pain, nausea, and vomiting. Patient was seen at the emergency room 5 days ago after developing shaking chills and feeling "not all there." Patient was on IV antibiotics and she stated she wanted to go home yesterday although the physician wanted to keep her another day. He did send her home on Bactrim, but she had a phone call today that stated she needs a different antibiotic for Escherichia coli. She does not know the name of the antibiotic. Today in the [place] [facility] she had a temperature of 103.7. She is on amlodipine for her hypertension, but has not been able to keep her medications down. She does have a history of diverticulosis and had a hysterectomy. In the emergency room patient had temperature 99.2 with initial blood pressure of 211/122. This decreased with pain control. CT of the abdomen was performed which showed right perinephric stranding which could reflect pyelonephritis or recently passed stone. Laboratory tests: Naveen BC 7.6, hemoglobin of 11.8, platelets 227, sodium 136, potassium 2.5, BUN 16, creatinine 1.7, lactic acid 1.0, alkaline phosphatase 145 , normal AST and ALT, albumin low at 2.9. UA was only significant for 1+ leukocyte Estrace, 1+ occult blood, and 1+ protein. 0-5 RBCs and WBCs. No bacteria seen. Diagnosis: Stroke: No Modified [place] Scale: No Symptoms at All Modified [place] Scale Score: 0 - Discharge Data Discharge Date: 11/19/18 Discharge Disposition: Home, Self-Care 01 Condition: Good - Referral to Home Health Primary Care Physician: PCP Not In Area - Patient Summary/Data Operative Procedure(s) Performed: None Complications: None Consults: None Labs Pending at D/C: None Recommended Follow-up Testing/Procedures: Endoscopy in 4-6 weeks after treatment Planned Operative Procedure(s) after DC: None Hospital Course: Patient was initially diagnosed and treated for pyelonephritis in [place]. She was discharged with oral antibiotic but her symptoms did not improve. When she landed in [place], she received a call from the facility and was told to get seen at the nearest hospital due to bacteremia. Hence, she presented to ED and was subsequently admitted for further treatment. Her abdominal/pelvis CT scan confirmed the diagnosis of pyelonephritis with additional findings of atelectasis, pulmonary lung nodule, small bilateral pleural effusions as well as moderate diverticulosis with diverticulitis. On admission, she was treated with intravenous antibiotics and closely monitored her electrolytes. Slowly, the she improved on this regimen. Her hospital course was fairly uncomplicated. Once medically stable, she was then released with additional course of oral antibiotics to complete a 10 day course of treatment. She was advised to follow up with her PCP and to have a colonoscopy done in 4-6 weeks after discharge. - Patient Instructions Diet: Usual Diet as Tolerated Fluid Restriction: 2000 mL Activity: As Tolerated Driving: May Drive Today Showering/Bathing: May Shower Notify Provider of: Fever, Increased Pain, Swelling and Redness, Nausea and/or Vomiting Other/Special Instructions: - Please take all new medications as directed. - Resume routine home medications and activity as tolerated. - Call or follow up with your doctor for any concerns or issues after discharge. - Recommend repeat chest CT scan in 6 months. - Recommend colonoscopy in 4-6 weeks after treatment. - Follow up with your doctor in 1 week with repeat labs: CBC, BMP and Mg levels. - Come back or seek immediate care should your symptoms persist or get worse - Discharge Plan *PRESCRIPTION DRUG MONITORING PROGRAM REVIEWED*: Not Applicable *COPY OF PRESCRIPTION DRUG MONITORING REPORT IN PATIENT AZAR: Not Applicable Prescriptions/Med Rec: Promethazine [Phenergan] 12.5 mg PO Q6HR PRN #30 tablet PRN Reason: Nausea Levofloxacin [Levaquin] 750 mg PO ASDIRECTED #5 tablet metroNIDAZOLE [Flagyl] 500 mg PO Q8H #16 tab Saccharomyces Boulardii [Florastor] 250 mg PO BID #30 capsule Scopolamine 1 each TD ASDIRECTED PRN #3 patch.td.3 PRN Reason: Nausea and Vomiting Home Medications: Home Meds amLODIPine Besylate [Amlodipine Besylate] 10 mg PO BEDTIME 11/13/18 [History] oxyCODONE HCl/Acetaminophen [Oxycodon-Acetaminophen 7.5-300] 1 tab PO Q6HR PRN 11/13/18 [History] Levofloxacin [Levaquin] 750 mg PO ASDIRECTED #5 tablet 11/19/18 [Rx] Promethazine [Phenergan] 12.5 mg PO Q6HR PRN #30 tablet 11/19/18 [Rx] Saccharomyces Boulardii [Florastor] 250 mg PO BID #30 capsule 11/19/18 [Rx] Scopolamine 1 each TD ASDIRECTED PRN #3 patch.td.3 11/19/18 [Rx] metroNIDAZOLE [Flagyl] 500 mg PO Q8H #16 tab 11/19/18 [Rx] Oxygen Therapy Mode: Room Air Patient Handouts: Acute Kidney Injury, Adult, Diverticulitis, [id number], Pyelonephritis, Adult, [id number], Hypokalemia, Atelectasis, Adult, Pleural Effusion, Pulmonary Nodule, [id number], Bacteremia, Steps to Quit Smoking Referrals: PCP,Not In Area [Primary Care Provider] - - Discharge Summary/Plan Comment DC Time >30 min.: No Discharge Summary/Plan Comment: Discharge to Home Offered practical counseling on smoking cigarettes. She was counseled about the dangers of smoking and associated health risks. At this time she is not ready to quit but receptive to the idea of smoking cessation. Patient was provided reading materials or brochures to help when to quit smoking. She was advised to set a specific date, call the Quit line and follow up with his PCP when she is ready to quit. - General Info Date of Service: 11/19/18 Admission Dx/Problem (Free Text: Admission Diagnosis/Problem Admission Diagnosis/Problem Pyelonephritis Subjective Update: No overnight or acute issues. She slept good and feels pretty good this morning. She is tolerating her current diet. She reports no nausea, vomiting or diarrhea. She is slightly low on K level. Functional Status: Reports: Pain Controlled, Tolerating Diet, Ambulating, Urinating. Denies: New Symptoms - Review of Systems General: Denies: Fever, Weakness, Fatigue, Malaise, Chills HEENT: Reports: No Symptoms Pulmonary: Denies: Shortness of Breath Cardiovascular: Denies: Chest Pain, Dyspnea on Exertion, Lightheadedness Gastrointestinal: Denies: Abdominal Pain, Nausea, Vomiting Genitourinary: Reports: Flank Pain. Denies: Dysuria, Frequency, Burning, Pain, Urgency, Incontinence, Hematuria Musculoskeletal: Reports: No Symptoms Skin: Denies: Cyanosis, Pallor, Diaphoresis, Rash Neurological: Denies: Confusion, Difficulty Walking, Weakness, Gait Disturbance Psychiatric: Denies: Depression, Anxiety, Agitation, Hallucinations Systems Review Comment: No overnight or acute issues. She is doing relatively well. She has no GI issues. However she still has mild flank pain - Patient Data Vitals - Most Recent: Last Vital Signs Temp 36.2 C 11/19/18 08:39 Pulse 82 11/19/18 08:39 Resp 14 11/19/18 08:39 BP 151/92 H 11/19/18 08:39 Pulse Ox 98 11/19/18 08:39 Weight - Most Recent: 74.979 kg I&O - Last 24 hours: Intake & Output 11/18/18 11/19/18 11/19/18 22:59 06:59 14:59 Intake Total 2680 850 440 Output Total 1000 Balance 1680 850 440 Lab Results - Last 24 hrs: Laboratory Results - last 24 hr 11/19/18 11/19/18 Range/Units 09:29 09:29 WBC 11.78 H (3.98-10.04) K/mm3 RBC 3.65 L (3.98-5.22) M/mm3 Hgb 11.6 D (11.2-15.7) gm/dl Hct 36.4 (34.1-44.9) % MCV 99.7 H (79.4-94.8) fl MCH 31.8 (25.6-32.2) pg MCHC 31.9 L (32.2-35.5) g/dl RDW Std Deviation 52.8 H (36.4-46.3) fL Plt Count 628 H D (182-369) K/mm3 MPV 9.1 L (9.4-12.3) fl Neut % (Auto) 68.0 (34.0-71.1) % Lymph % (Auto) 21.8 (19.3-51.7) % [place] % (Auto) 7.2 (4.7-12.5) % Eos % (Auto) 0.8 (0.7-5.8) Baso % (Auto) 0.2 (0.1-1.2) % Neut # (Auto) 8.01 H (1.56-6.13) K/mm3 Lymph # (Auto) 2.57 (1.18-3.74) K/mm3 [place] # (Auto) 0.85 H (0.24-0.36) K/mm3 Eos # (Auto) 0.10 (0.04-0.36) K/mm3 Baso # (Auto) 0.02 (0.01-0.08) K/mm3 Manual Slide Review Abnormal smear Sodium 138 (136-145) mEq/L Potassium 3.6 (3.5-5.1) mEq/L Chloride 105 (98-107) mEq/L Carbon Dioxide 26 (21-32) mEq/L Anion Gap 10.6 (5-15) BUN 19 H (7-18) mg/dL Creatinine 1.4 H (0.55-1.02) mg/dL Est Cr Clr Drug Dosing 46.00 mL/min Estimated GFR (MDRD) 40 (>60) mL/min BUN/Creatinine Ratio 13.6 L (14-18) Glucose 114 H (74-106) mg/dL Calcium 9.0 (8.5-10.1) mg/dL C-Reactive Protein 6.3 H* (<1.0) mg/dL CESAR Results - Last 24 hrs: Microbiology 11/13/18 15:59 Aerobic Blood Culture - Preliminary Blood - Venous NO GROWTH AFTER 5 DAYS Anaerobic Blood Culture - Preliminary NO GROWTH AFTER 5 DAYS 11/13/18 16:03 Aerobic Blood Culture - Preliminary Blood - Venous - Lab Draw NO GROWTH AFTER 5 DAYS Anaerobic Blood Culture - Preliminary NO GROWTH AFTER 5 DAYS Med Orders - Current: Current Medications Acetaminophen (Tylenol) 650 mg PO Q4H PRN PRN Reason: Pain (Mild 1-3)/fever Last Admin: 11/16/18 09:05 Dose: 650 mg Amlodipine Besylate (Norvasc) 10 mg PO BEDTIME [facility] Last Admin: 11/18/18 20:14 Dose: 10 mg Bisacodyl (Dulcolax) 5 mg PO DAILY PRN PRN Reason: Constipation Last Admin: 11/14/18 12:22 Dose: 5 mg Enoxaparin Sodium (Lovenox) 40 mg SUBCUT DAILY [facility] Last Admin: 11/19/18 09:05 Dose: 40 mg Hydromorphone HCl (Dilaudid) 0.5 mg IVPUSH Q2H PRN PRN Reason: Pain (severe 7-10) Last Admin: 11/14/18 16:23 Dose: 0.5 mg Ceftriaxone Sodium 2 gm/ (Sodium Chloride) 100 mls @ 200 mls/hr IV Q24H [facility] Last Admin: 11/18/18 15:55 Dose: 200 mls/hr Metronidazole 500 mg/ Premix 100 mls @ 100 mls/hr IV Q8H [facility] Last Admin: 11/19/18 09:16 Dose: 100 mls/hr Ondansetron HCl (Zofran) 4 mg IV Q4H PRN PRN Reason: Nausea/Vomiting Last Admin: 11/17/18 20:21 Dose: 4 mg Oxycodone HCl (Oxycodone) 5 mg PO Q4H PRN PRN Reason: Pain (moderate 4-6) Last Admin: 11/19/18 06:19 Dose: 5 mg Polyethylene Glycol (Miralax) 17 gm PO DAILY PRN PRN Reason: Constipation Last Admin: 11/14/18 20:30 Dose: 17 gm Promethazine HCl (Phenergan) 25 mg PO Q4H PRN PRN Reason: Nausea/Vomiting Last Admin: 11/19/18 06:20 Dose: 25 mg Sodium Chloride (Saline Flush) 10 ml FLUSH ASDIRECTED PRN PRN Reason: Keep Vein Open Last Admin: 11/13/18 17:20 Dose: 10 ml Discontinued Medications Amlodipine Besylate (Norvasc) 10 mg PO NOW STA Stop: 11/13/18 21:46 Last Admin: 11/13/18 22:24 Dose: 10 mg Bisacodyl (Dulcolax) 10 mg RECTAL ONETIME ONE Stop: 11/15/18 10:43 Last Admin: 11/15/18 10:52 Dose: 10 mg Diatrizoate Meglum/Diatrizoate Sod (Gastrografin 37%) 90 ml PO ONETIME ONE Stop: 11/16/18 12:06 Last Admin: 11/16/18 12:08 Dose: 90 ml Diphenhydramine HCl (Benadryl) 50 mg IVPUSH ONETIME ONE Stop: 11/16/18 11:31 Last Admin: 11/16/18 11:31 Dose: 50 mg Hydromorphone HCl (Dilaudid) 1 mg IVPUSH ONETIME ONE Stop: 11/13/18 17:26 Last Admin: 11/13/18 17:40 Dose: 1 mg Ceftriaxone Sodium 2 gm/ (Sodium Chloride) 100 mls @ 200 mls/hr IV STAT ONE Stop: 11/13/18 16:04 Last Admin: 11/13/18 16:58 Dose: Not Given Sodium Chloride (Normal Saline) 1,000 mls @ 1,000 mls/hr IV ONETIME ONE Stop: 11/13/18 16:36 Last Admin: 11/13/18 16:08 Dose: 1,000 mls/hr Ceftriaxone Sodium 2 gm/ (Sodium Chloride) 100 mls @ 200 mls/hr IV ONETIME ONE Stop: 11/13/18 16:20 Last Admin: 11/13/18 16:10 Dose: 200 mls/hr Potassium Chloride 10 meq/ (Premix) 100 mls @ 100 mls/hr IV ASDIRECTED [facility] Last Admin: 11/13/18 19:52 Dose: 100 mls/hr Sodium Chloride (Normal Saline) 1,000 mls @ 50 mls/hr IV ASDIRECTED [facility] Last Admin: 11/13/18 19:52 Dose: 50 mls/hr Lactated Ringer's (Ringers, Lactated) 1,000 mls @ 125 mls/hr IV ASDIRECTED [facility] Last Admin: 11/14/18 06:40 Dose: 125 mls/hr Potassium Chloride 10 meq/ (Premix) 100 mls @ 100 mls/hr IV Q1H [facility] Stop: 11/14/18 01:44 Last Admin: 11/14/18 01:40 Dose: 100 mls/hr Meropenem 1 gm/ Sodium (Chloride) 100 mls @ 200 mls/hr IV Q8H [facility] Last Admin: 11/14/18 08:07 Dose: Not Given Meropenem/Sodium Chloride 500 (mg/ Premix) 50 mls @ 100 mls/hr IV Q8H [facility] Last Admin: 11/15/18 08:35 Dose: 100 mls/hr Potassium Chloride 10 meq/ (Premix) 100 mls @ 100 mls/hr IV Q1H [facility] Stop: 11/14/18 12:14 Last Admin: 11/14/18 14:35 Dose: 100 mls/hr Magnesium Sulfate 4 gm/ Premix 50 mls @ 12.5 mls/hr IV ONETIME ONE Stop: 11/14/18 12:13 Last Admin: 11/14/18 08:51 Dose: 12.5 mls/hr Lactated Ringer's (Ringers, Lactated) 1,000 mls @ 500 mls/hr IV STAT ONE Stop: 11/16/18 12:14 Last Admin: 11/16/18 10:21 Dose: 500 mls/hr Sodium Chloride (Normal Saline) 100 mls @ 60 mls/hr IV ASDIRECTED [facility] Iopamidol (Isovue-300 (61%)) 100 ml IVPUSH ONETIME ONE Stop: 11/16/18 11:30 Last Admin: 11/16/18 12:04 Dose: 100 ml Magnesium Hydroxide (Milk Of Magnesia) 30 ml PO ONETIME ONE Stop: 11/15/18 12:36 Last Admin: 11/15/18 12:54 Dose: 30 ml Methylprednisolone Sodium Succinate (Solu-Medrol) 125 mg IVPUSH ONETIME ONE Stop: 11/16/18 10:01 Last Admin: 11/16/18 10:13 Dose: 125 mg Ondansetron HCl (Zofran) 4 mg IVPUSH ONETIME ONE Stop: 11/13/18 17:43 Last Admin: 11/13/18 17:47 Dose: 4 mg Potassium Chloride (Klor-Con M20) 60 meq PO ONETIME ONE Stop: 11/18/18 10:16 Last Admin: 11/18/18 10:33 Dose: 60 meq Sodium Chloride (Saline Flush) 10 ml FLUSH ONETIME ONE Stop: 11/16/18 11:30 Last Admin: 11/16/18 12:04 Dose: 10 ml - Exam General: Reports: Alert, Oriented, Cooperative, No Acute Distress HEENT: Reports: Pupils Equal, Pupils Reactive, EOMI, Mucous Membr. Moist/[place] Neck: Reports: Supple Lungs: Reports: Clear to Auscultation, Normal Respiratory Effort Cardiovascular: Reports: Regular Rate, Regular Rhythm GI/Abdominal Exam: Normal Bowel Sounds, Soft, Non-Tender, No Organomegaly, No Abnormal Bruit, No Mass, Other (Right Flank: Mild CVA tenderness ) (Female) Exam: Deferred Rectal (Female) Exam: Deferred Back Exam: Reports: Normal Inspection, Full Range of Motion Extremities: Normal Inspection, Normal Range of Motion, Non-Tender, No Pedal Edema, Normal Capillary Refill Skin: Reports: Warm, Dry, Intact Neurological: Reports: No New Focal Deficit, Normal Gait Psy/Mental Status: Reports: Alert, Normal Affect, Normal Mood
== END 2018-11-19 14:28 | disposition home or self-care (01) | DRG 690 ==
LOC: JD.ED 15:13 → JD.MS 20:38
PROVIDERS: ADMIT Family Medicine; ATTEND Family Medicine
DX: N12 Tubulo-interstitial nephritis, not specified as acute or chronic (principal); K57.32 Diverticulitis of large intestine without perforation or abscess without bleeding; J90 Pleural effusion, not elsewhere classified; J98.11 Atelectasis; N17.9 Acute kidney failure, unspecified; I10 Essential (primary) hypertension; F41.0 Panic disorder [episodic paroxysmal anxiety]; F17.200 Nicotine dependence, unspecified, uncomplicated; E87.6 Hypokalemia; B96.20 Unspecified Escherichia coli [E. coli] as the cause of diseases classified elsewhere; K76.89 Other specified diseases of liver; Z88.8 Allergy status to other drugs, medicaments and biological substances; Z90.710 Acquired absence of both cervix and uterus; Z71.6 Tobacco abuse counseling
CPT/HCPCS: 36415; 71260; 71260-26; 74176; 74176-26; 74177; 74177-26; 80048; 80053; 81001; 83605; 83735; 85025; 86140; 87040; 96361; 96365; 96367; 96375; 99222; 99231; 99232; 99238; 99284; 99284-25; A9270-GY; J0696; J1170; J1200; J1650; J2185; J2405; J2930; J3475; J3480; J3490; J7030; J7040; J7120; J8597; Q9963; Q9967

== ENCOUNTER 2018-12-06 13:30 | Emergency (ER) | payer BC, OTHER ==
--- NOTE | 2018-12-06 14:22 | EDM.PDOC ---
ED HPI GENERAL MEDICAL PROBLEM - General Chief Complaint: Upper Extremity Injury/Pain Stated Complaint: RT HAND INJURY Time Seen by Provider: 12/06/18 14:17 Source of Information: Reports: Patient History Limitations: Reports: No Limitations - History of Present Illness INITIAL COMMENTS - FREE TEXT/NARRATIVE: 38-year-old female presents the ED for evaluation of injury to her right hand that occurred late last evening. She states she slipped and fell backwards smashing the back of her hand on another object. This is resulted in marked swelling of the mid and ulnar aspect of her right hand with ecchymoses both dorsally and on the palmar surface of the hand suggesting fracture. There is mild pain in her right wrist. She denies any other injuries. Of note she is right-hand dominant. Onset: Sudden Onset Date: 12/05/18 Onset Time: 17:00 Duration: Hour(s):, Getting Worse Location: Reports: Upper Extremity, Right Quality: Reports: Ache, Throbbing Severity: Moderate Improves with: Reports: None Worsens with: Reports: Movement (Cannot make a full fist.) Context: Reports: Trauma. Denies: Activity, Exercise, Lifting, Sick Contact Associated Symptoms: Reports: No Other Symptoms Treatments [employer]: Reports: NSAIDS Right Hand Pain Score (Numeric/FACES): 6 - Related Data Allergies Allergy/AdvReac Type Severity Reaction Status Date / Time Gadolinium-Containing Allergy Rash Verified 11/13/18 15:48 Contrast Medi Home Meds: Home Meds amLODIPine Besylate [Amlodipine Besylate] 10 mg PO BEDTIME 11/13/18 [History] oxyCODONE HCl/Acetaminophen [Percocet 5-325 mg Tablet] 1 - 2 each PO Q4H PRN # 20 tablet 12/06/18 [Rx] Past Medical History Cardiovascular History: Reports: Hypertension Gastrointestinal History: Reports: Diverticulosis Genitourinary History: Reports: Pyelonephritis, Retention, Urinary, UTI, 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: Endometrial Ablation, Fibroids, Psychiatric History: Reports: Hallucinations, Panic Attack - Past Surgical History HEENT Surgical History: Reports: LASIK GI Surgical History: Reports: None Female Surgical History: Reports: Hysterectomy Social & Family History - Family History Family Medical History: Noncontributory - Tobacco Use Smoking Status *Q: Current Every Day Smoker Years of Tobacco use: 1 Packs/Tins Daily: 0.2 - Caffeine Use Caffeine Use: Reports: Soda - Recreational Drug Use Recreational Drug Use: No - Living Situation & Occupation Living situation: Reports: Occupation: Employed Review of Systems - Review of Systems Review Of Systems: See Below Constitutional: Denies: Chills, Diaphoresis, Fever, Weakness Eyes: Reports: No Symptoms Ears: Reports: No Symptoms Nose: Reports: No Symptoms Mouth/Throat: Reports: No Symptoms Respiratory: Reports: No Symptoms Cardiovascular: Reports: No Symptoms GI/Abdominal: Reports: No Symptoms Genitourinary: Reports: No Symptoms Musculoskeletal: Reports: Hand Pain (Right hand pain. See history of present illness) Skin: Reports: No Symptoms (No chronic skin problems) Neurological: Reports: No Symptoms Psychiatric: Reports: No Symptoms ED EXAM, GENERAL - Physical Exam Exam: See Below Exam Limited By: No Limitations General Appearance: Alert, WD/WN, No Apparent Distress Extremities: Other (Examination was limited to the right hand and wrist area. There is marked ecchymoses and swelling from the third metacarpal and dorsal ulnar aspect of the hand with marked swelling dorsally. There is ecchymoses and throat the ulnar and mid palmar space of the right hand as well. She is unable to make a full fist due to pain. Note, no pain on from compression over her carpal bones.) Neurological: Alert, Oriented, CN II-XII Intact, Normal Cognition ED TRAUMA EXTREMITY PROCEDURES - Splinting Right Upper Extremity Splint Site: short arm ulnar gutter orthoglass splint Rt arm Pre-Procedure NV Status: Normal Post-Procedure NV Status: Normal Splint Material: Fiberglass Splint Design: Gutter Applied & Form Fitted By: Provider Provider Post-Splint Application NV Check: NV Status Normal Complications: No Course - Vital Signs Last Recorded V/S: Last Vital Signs Temp 36.2 C 12/06/18 14:13 Pulse 90 12/06/18 14:13 Resp 20 12/06/18 14:13 BP 157/125 H 12/06/18 14:13 Pulse Ox 99 12/06/18 14:13 - Orders/Labs/Meds Meds: Medications Discontinued Medications Generic Name Dose Route Start Last Admin Trade Name Freq PRN Reason Stop Dose Admin Oxycodone/Acetaminophen 2 tab 12/06/18 14:43 12/06/18 15:00 Percocet 325-5 Mg PO 12/06/18 14:44 2 tab ONETIME ONE Administration - Radiology Interpretation Free Text/Narrative:: 48-year-old female presents to the ED for evaluation of right hand injury. This occurred yesterday evening about 1700 hrs. when she slipped and fell and banged the dorsal aspect of her right hand on a solid object. This resulted in immediate pain and increased swelling over the dorsal ulnar aspect of her right hand today. She has very limited ability make a fist. There is also ecchymoses in the palmar aspect of the mid and ulnar hand suggesting a fracture of the metacarpal. Plan 3 views of x-ray of the right hand to be done. - Re-Assessments/Exams Free Text/Narrative Re-Assessment/Exam: 12/06/18 14:44 X-rays of the right hand reveal fractures of the distal aspects of the right fourth and fifth the carpals. Alignment is nearly anatomical. Plan she'll be placed in a ulnar gutter splint and then I will have her follow-up with Dr. Rincon sometime next week for cast application. Will give her-2 Percocet tablets 5/325 mg for pain at this point time. He'll be discharged home with 20 tablets for pain relief as well. 12/06/18 15:23 patient may 5 inch Ortho-Glass ulnar gutter splint to maintain position of the fractures. She will follow-up with Dr. Rincon early next week as mentioned above. Departure - Departure Time of Disposition: 15:23 Disposition: Home, Self-Care 01 Condition: Fair Clinical Impression: Fracture of metacarpal of right hand, closed Qualifiers: Encounter type: initial encounter Metacarpal bone: fifth Metacarpal location: base Fracture alignment: nondisplaced Qualified Code(s): S62.346A - Nondisplaced fracture of base of fifth metacarpal bone, right hand, initial encounter for closed fracture - Discharge Information *PRESCRIPTION DRUG MONITORING PROGRAM REVIEWED*: Not Applicable *COPY OF PRESCRIPTION DRUG MONITORING REPORT IN PATIENT AZAR: Not Applicable Prescriptions: oxyCODONE HCl/Acetaminophen [Percocet 5-325 mg Tablet] 1 - 2 each PO Q4H PRN # 20 tablet PRN Reason: pain relief. Instructions: Metacarpal Fracture, [id number] Referrals: PCP,Not In Area [Primary Care Provider] - Forms: ED Department Discharge Additional Instructions: Evaluation the emergency room today in regards to fall with blunt trauma to the dorsal aspect of your right hand last evening. His is resulted in a fracture to the base of the right fourth and fifth metacarpals in your hand. Alignment is satisfactory. Treatment in the ED was an ulnar gutter splint to maintain position of the fractured bones and allow for further swelling is usually goes on for 2 days after injury. Elevate the hand at heart level is much as possible to help alleviate swelling and pain. Continue Motrin 600 mg every 6 hours to relieve pain and inflammation. Percocet tabs 5/325 one or 2 every 4-6 hours no safe for pain relief the next 2-[address] Rincon's office at [phone] to arrange a appointment for next week for cast application. Stomach apply ice over the splint for one half hour to every 4 hours to help further help reduce swelling for the next day.
[2018-12-06] MEDS ORDERED: Acetaminophen/oxyCODONE 325-5 MG Tab PO ONE (14:43)
--- NOTE | 2018-12-06 14:54 | CR ---
Right hand: Four views of the right hand were obtained. Comparison: No previous hand exam. Fracture is identified within the base of the fifth metacarpal. No additional fracture or other bony abnormality is seen. Soft tissue swelling is identified. Impression: 1. Fracture within the base of the right fifth metacarpal. 1. Soft tissue swelling. Diagnostic code #3
== END 2018-12-06 15:30 | disposition home or self-care (01) ==
LOC: JD.ED 13:30
DX: S62.346A Nondisplaced fracture of base of fifth metacarpal bone, right hand, initial encounter for closed fracture (principal); I10 Essential (primary) hypertension; F17.200 Nicotine dependence, unspecified, uncomplicated; Z79.899 Other long term (current) drug therapy; Z91.041 Radiographic dye allergy status; W01.198A Fall on same level from slipping, tripping and stumbling with subsequent striking against other object, initial encounter
CPT/HCPCS: 29125; 73130; 99283; A9270